=== PATIENT | male | born 1945 | race Caucasian/White ===

== ENCOUNTER 2017-01-23 11:02 | Emergency (ER) | payer OTHER, MEDICARE ==
[~2017-01-23] VITALS: Ht 182.9 cm; Wt 64.0 kg
[~2017-01-23 11:02] MED LIST: ADLT ASA LOW81 MG PO; AMOXICILLIN/CL400 MG PO; AMOXICILLIN500 MG OR; AMOXICILLIN500 MG PO; ANTI-FUNGAL12 TOP; ANUCORT-HC25 MG RE; ASPIRIN EC325 MG PO; ASPIRIN EC81 MG PO; ATORVASTATIN CA40 MG PO; ATROVENT I0.5 MG/VIA IN; AUGMENTIN875TAB PO; AVELOX400 MG PO; CRESTOR10 MG OR; DUONEB IN; ETODOLAC400 MG OR; ETODOLAC400 MG PO; FORADIL IN; GABAPENTIN300 MG PO; IMDUR30 MG PO; ISOSORB MONO60 M1 PO; ISOSORBIDE MONO30 MG PO; KENALOG15 GM/TUBE TOP; LANTUS SOLOSTAR SC; LANTUS100 MG/ML SC; LEVEMIR1000 UNITS SC; LIPITOR40 M1 PO; LIPITOR80 MG PO; LISINOPRIL5 MG PO; LORTAB5 PO; MECLIZINE25 MG PO; METFORMIN1000 MG OR; METFORMIN1000 MG PO; METHYLPRED4 M1 PO; METO25TAB PO; METOPROL TAR25 MG PO; NAPROSYN500 MG PO; NITRO BID SL; NITROGLYCER0.1 MG/HR TD; NITROQUICK0.3 MG SL; NITROSTAT0.4 MG SL; NORCO1 TA1 PO; NOVOLIN R IJ; PAIN RELIEF650 MG PO; PLAVIX75 MG PO; POT CHLORIDE8 MEQ PO; PREDNISONE10 MG PO; PREDNISONE50 MG PO; PROVENTIL0.083 % IN; SEE BELOW; SERTRALINE HCL50 MG PO; SERTRALINE50 MG PO; Symbicort IN; TRAMADOL HCL50 MG PO; TYLENOL ARTH650 M1 OR; ULTRAM50 MG PO; ZESTRIL20 MG PO; ZITHROMAX250 MG PO; ZITHROMAX500 MG OR; ZITHROMAX500 MG PO; [UNRECOGNIZED DRUG - REMARK]; [UNRECOGNIZED DRUG - REMARK] IJ
[2017-01-23] MEDS ORDERED: SERTRALINE HCL50 MG PO (11:17)
[2017-01-23] MEDS ORDERED: ATORVASTATIN CA20 MG PO (11:18)
[2017-01-23] MEDS ORDERED: CLOTRIMAZOLE/BETAME1 EX (11:21)
[2017-01-23 11:34] LABS: HEMATOCRIT 47.5 % (39.0-50.0); HEMOGLOBIN 15.9 g/dl (14.0-18.0); IMMATURE GRANULOCYTES 0.4 % (0.0-1.0); MEAN CELL VOLUME 93.7 fL CALC (80.0-100.0); MEAN CORPUSCULAR HGB 31.4 pG CALC (26.0-32.0); MEAN CORPUSCULAR HGB CONC 33.5 g/L CALC (32.0-36.0); NEUT# 3.45 thou/uL (1.82-7.42); RED BLOOD COUNT 5.07 mill/uL (4.70-6.10); RED CELL DISTRI WIDTH 13.6 % (11.5-15.5)
[2017-01-23 11:46] LABS: ALBUMIN 4.6 g/dL (3.2-5.0); ALKALINE PHOSPHATASE 70 u/l (38-126); ANION GAP 16 (6-22 (CALC)); BILIRUBIN, TOTAL 0.7 mg/dL (0.0-1.4); BUN 17 mg/dL (8-23); BUN/CREATININE RATIO 17 (12-20 (CALC)); CALCIUM 9.7 mg/dL (8.4-10.2); CARBON DIOXIDE 28 mmol/l (22-30); CHLORIDE 104 mmol/l (95-108); GFR > 60 ML/MIN (>=60 (CALC)); GFR FOR AFR.AMER. > 60 ML/MIN (>=60 (CALC)); GLUCOSE 81 mg/dL (82-115); POTASSIUM 4.4 mmol/l (3.5-5.1); SGOT/AST 38 u/l (19-48); SGPT/ALT 44 u/l (11-66); SODIUM 143 mmol/l (137-146); TOTAL PROTEIN 7.6 g/dL (6.3-8.2)
[2017-01-23 11:58] LABS: MYOGLOBIN 53 ng/mL (0 - 121)
[2017-01-23 12:58] LABS: URINE BILIRUBIN - DIPSTICK NEGATIVE (NEGATIVE); URINE BLOOD DIPSTICK NEGATIVE (NEGATIVE); URINE CLARITY CLEAR; URINE COLOR YELLOW; URINE GLUCOSE - DIPSTICK NEGATIVE (NEGATIVE); URINE KETONE NEGATIVE (NEGATIVE); URINE LEUK ESTERASE NEGATIVE (NEGATIVE); URINE NITRITE - DIPSTICK NEGATIVE (Negative); URINE PH 7.5 (4.5-8.0); URINE PROTEIN - DIPSTICK NEGATIVE (NEG-TRACE)
[2017-01-23 15:27] VITALS: BP 163/71
== END 2017-01-23 15:10 | disposition home or self-care (01) | DRG 125 ==
LOC: ED 11:02
PROVIDERS: Emergency Medicine
DX: S01.112A Laceration without foreign body of left eyelid and periocular area, initial encounter (principal); I11.0 Hypertensive heart disease with heart failure; I50.9 Heart failure, unspecified; J44.9 Chronic obstructive pulmonary disease, unspecified; E11.9 Type 2 diabetes mellitus without complications; I25.10 Atherosclerotic heart disease of native coronary artery without angina pectoris; I25.2 Old myocardial infarction; E78.5 Hyperlipidemia, unspecified; W18.30XA Fall on same level, unspecified, initial encounter; Y93.89 Activity, other specified; Y92.122 Bedroom in nursing home as the place of occurrence of the external cause; Z95.5 Presence of coronary angioplasty implant and graft; Z95.1 Presence of aortocoronary bypass graft; Z86.73 Personal history of transient ischemic attack (TIA), and cerebral infarction without residual deficits; Z91.81 History of falling

== ENCOUNTER 2017-05-27 17:23 | Emergency (ER) | payer OTHER, MEDICARE ==
[~2017-05-27] VITALS: Ht 182.9 cm; Wt 80.0 kg
[~2017-05-27 17:23] MED LIST changes: +ATORVASTATIN CA20 MG PO; +CLOTRIMAZOLE/BETAME1 EX
[2017-05-27 17:59] LABS: HEMATOCRIT 43.1 % (39.0-50.0); HEMOGLOBIN 14.7 g/dl (14.0-18.0); IMMATURE GRANULOCYTES 0.3 % (0.0-1.0); MEAN CELL VOLUME 95.8 fL CALC (80.0-100.0); MEAN CORPUSCULAR HGB 32.7 pG CALC (26.0-32.0); MEAN CORPUSCULAR HGB CONC 34.1 g/L CALC (32.0-36.0); NEUT# 3.36 thou/uL (1.82-7.42); RED BLOOD COUNT 4.5 mill/uL (4.70-6.10); RED CELL DISTRI WIDTH 13.1 % (11.5-15.5)
[2017-05-27 18:12] LABS: ALBUMIN 4.3 g/dL (3.2-5.0); ALKALINE PHOSPHATASE 62 u/l (38-126); ANION GAP 13 (6-22 (CALC)); BILIRUBIN, TOTAL 0.5 mg/dL (0.0-1.4); BUN 15 mg/dL (8-23); BUN/CREATININE RATIO 15 (12-20 (CALC)); CALCIUM 9.3 mg/dL (8.4-10.2); CARBON DIOXIDE 27 mmol/l (22-30); CHLORIDE 108 mmol/l (95-108); GFR > 60 ML/MIN (>=60 (CALC)); GFR FOR AFR.AMER. > 60 ML/MIN (>=60 (CALC)); GLUCOSE 97 mg/dL (82-115); SGOT/AST 23 u/l (19-48); SGPT/ALT 37 u/l (11-66); SODIUM 143 mmol/l (137-146); TOTAL PROTEIN 7.1 g/dL (6.3-8.2)
[2017-05-27 18:19] LABS: PROTHROMBIN TIME 10.5 SECONDS (9.0-12.5)
[2017-05-27 18:24] LABS: MYOGLOBIN 60 ng/mL (0 - 121)
[2017-05-27] MEDS ORDERED: ULTRAM50 MG PO (18:34)
[2017-05-27] MEDS ORDERED: NITROSTAT0.4 MG SL (18:37)
[2017-05-27] MEDS ORDERED: PAIN RELIEF500 M3 PO (18:45)
[2017-05-27 21:37] VITALS: BP 139/63
== END 2017-05-27 21:37 | disposition short-term general hospital (02) | DRG 123 ==
LOC: ED 17:23
PROVIDERS: Emergency Medicine
DX: G45.3 Amaurosis fugax (principal); I11.0 Hypertensive heart disease with heart failure; I50.9 Heart failure, unspecified; E11.9 Type 2 diabetes mellitus without complications; I25.10 Atherosclerotic heart disease of native coronary artery without angina pectoris; E78.5 Hyperlipidemia, unspecified; J43.9 Emphysema, unspecified; Z86.73 Personal history of transient ischemic attack (TIA), and cerebral infarction without residual deficits; Z95.1 Presence of aortocoronary bypass graft; Z95.5 Presence of coronary angioplasty implant and graft

== ENCOUNTER 2017-11-29 00:44 | Emergency (ER) | payer MEDICARE ==
[~2017-11-29] VITALS: Ht 182.9 cm; Wt 88.0 kg
[~2017-11-29 00:44] MED LIST changes: +ISOSORB MONO30 MG PO; +KEFLEX500 MG PO; +PAIN RELIEF500 M3 PO; +PRINIVIL5 MG PO; +PROPRANOLOL HCL80 M1 PO
[2017-11-29 01:50] LABS: HEMATOCRIT 42.3 % (39.0-50.0); HEMOGLOBIN 14.5 g/dl (14.0-18.0); IMMATURE GRANULOCYTES 0.2 % (0.0-1.0); MEAN CELL VOLUME 94.4 fL CALC (80.0-100.0); MEAN CORPUSCULAR HGB 32.4 pG CALC (26.0-32.0); MEAN CORPUSCULAR HGB CONC 34.3 g/L CALC (32.0-36.0); NEUT# 7.46 thou/uL (1.82-7.42); RED BLOOD COUNT 4.48 mill/uL (4.70-6.10); RED CELL DISTRI WIDTH 13.2 % (11.5-15.5)
[2017-11-29 02:06] LABS: ALKALINE PHOSPHATASE 75 u/l (38-126); ANION GAP 12 (6-22 (CALC)); BILIRUBIN, TOTAL 0.4 mg/dL (0.0-1.4); BUN 20 mg/dL (8-23); BUN/CREATININE RATIO 17 (12-20 (CALC)); CARBON DIOXIDE 28 mmol/l (22-30); CHLORIDE 104 mmol/l (95-108); CREATININE 1.2 mg/dL (0.7-1.3); GFR 59 ML/MIN (>=60 (CALC)); GFR FOR AFR.AMER. > 60 ML/MIN (>=60 (CALC)); POTASSIUM 4.6 mmol/l (3.5-5.1); SGOT/AST 19 u/l (19-48); SGPT/ALT 29 u/l (11-66); SODIUM 139 mmol/l (137-146); TOTAL PROTEIN 7.2 g/dL (6.3-8.2)
[2017-11-29 03:07] LABS: MYOGLOBIN 59 ng/mL (0 - 121)
[2017-11-29] MEDS ORDERED: NAPROSYN500 MG PO (03:52)
[2017-11-29 04:05] VITALS: BP 136/61
== END 2017-11-29 04:05 | disposition home or self-care (01) ==
LOC: ED 00:44
PROVIDERS: Emergency Medicine
DX: S09.90XA Unspecified injury of head, initial encounter (principal); M47.816 Spondylosis without myelopathy or radiculopathy, lumbar region; R00.1 Bradycardia, unspecified; R42 Dizziness and giddiness; M79.1 Myalgia; I25.810 Atherosclerosis of coronary artery bypass graft(s) without angina pectoris; I10 Essential (primary) hypertension; Z95.1 Presence of aortocoronary bypass graft; W06.XXXA Fall from bed, initial encounter; Y93.E8 Activity, other personal hygiene; Y92.122 Bedroom in nursing home as the place of occurrence of the external cause

== ENCOUNTER 2018-07-12 08:48 | Observation (INO) | payer MEDICARE ==
[2018-07-12] VITALS (7 sets, daily range): BP systolic 92–161; BP diastolic 42–74
[~2018-07-12] VITALS: Ht 182.9 cm; Wt 89.8 kg
[2018-07-12] MEDS ORDERED: METOPROL TAR25 MG PO (09:13)
[2018-07-12 09:36] LABS: HEMATOCRIT 45.2 % (39.0-50.0); HEMOGLOBIN 15.5 g/dl (14.0-18.0); IMMATURE GRANULOCYTES 0.3 % (0.0-5.0); MEAN CELL VOLUME 95.2 fL CALC (80.0-100.0); MEAN CORPUSCULAR HGB 32.6 pG CALC (26.0-32.0); MEAN CORPUSCULAR HGB CONC 34.3 g/L CALC (32.0-36.0); NEUT# 4.27 thou/uL (1.82-7.42); RED BLOOD COUNT 4.75 mill/uL (4.70-6.10); RED CELL DISTRI WIDTH 12.7 % (11.5-15.5)
[2018-07-12 09:40] LABS: ALBUMIN 4.4 g/dL (3.2-5.0); ALKALINE PHOSPHATASE 70 u/l (38-126); ANION GAP 15 (6-22 (CALC)); BUN 15 mg/dL (8-23); BUN/CREATININE RATIO 14 (12-20 (CALC)); CARBON DIOXIDE 27 mmol/l (22-30); CHLORIDE 102 mmol/l (95-108); CREATININE 1.1 mg/dL (0.7-1.3); GFR > 60 ML/MIN (>=60 (CALC)); GFR FOR AFR.AMER. > 60 ML/MIN (>=60 (CALC)); LIPASE 95 u/l (23-300); POTASSIUM 4.3 mmol/l (3.5-5.1); SODIUM 140 mmol/l (137-146); TOTAL PROTEIN 7.7 g/dL (6.3-8.2)
[2018-07-12 09:42] LABS: SGOT/AST 40 u/l (19-48)
[2018-07-12 09:52] LABS: D-DIMER 0.3 mg/L (0.19-0.60); PROTHROMBIN TIME 10.5 SECONDS (9.0-12.5)
[2018-07-13 00:05] VITALS: BP 119/57
[2018-07-13 04:00] VITALS: BP 100/47
[2018-07-13 05:55] LABS: HEMATOCRIT 45.1 % (39.0-50.0); HEMOGLOBIN 15.5 g/dl (14.0-18.0); IMMATURE GRANULOCYTES 0.2 % (0.0-5.0); MEAN CELL VOLUME 94.4 fL CALC (80.0-100.0); MEAN CORPUSCULAR HGB 32.4 pG CALC (26.0-32.0); MEAN CORPUSCULAR HGB CONC 34.4 g/L CALC (32.0-36.0); NEUT# 3.81 thou/uL (1.82-7.42); RED BLOOD COUNT 4.78 mill/uL (4.70-6.10); RED CELL DISTRI WIDTH 12.7 % (11.5-15.5)
[2018-07-13 06:13] LABS: ALBUMIN 3.7 g/dL (3.2-5.0); ALKALINE PHOSPHATASE 66 u/l (38-126); ANION GAP 13 (6-22 (CALC)); BILIRUBIN, TOTAL 0.6 mg/dL (0.0-1.4); BUN 17 mg/dL (8-23); BUN/CREATININE RATIO 15 (12-20 (CALC)); CARBON DIOXIDE 27 mmol/l (22-30); CHLORIDE 106 mmol/l (95-108); CREATININE 1.1 mg/dL (0.7-1.3); GFR > 60 ML/MIN (>=60 (CALC)); GFR FOR AFR.AMER. > 60 ML/MIN (>=60 (CALC)); MAGNESIUM 2.3 mg/dL (1.6-2.3); POTASSIUM 4.4 mmol/l (3.5-5.1); SGOT/AST 26 u/l (19-48); SODIUM 141 mmol/l (137-146); TOTAL PROTEIN 6.5 g/dL (6.3-8.2)
[2018-07-13 08:00] VITALS: BP 127/59
[2018-07-13 10:00] VITALS: BP 140/78
== END 2018-07-13 11:50 ==
LOC: ED 08:48 → ED-I 10:01 → ED 10:29 → ICU 10:30
PROVIDERS: Emergency Medicine; ADMIT Internal Medicine Nephrology; ATTEND Internal Medicine Nephrology
DX: R00.1 Bradycardia, unspecified (principal); T44.7X5A Adverse effect of beta-adrenoreceptor antagonists, initial encounter; R07.9 Chest pain, unspecified; I11.9 Hypertensive heart disease without heart failure; E11.9 Type 2 diabetes mellitus without complications; I25.10 Atherosclerotic heart disease of native coronary artery without angina pectoris; J44.9 Chronic obstructive pulmonary disease, unspecified; E78.5 Hyperlipidemia, unspecified; I69.928 Other speech and language deficits following unspecified cerebrovascular disease; I69.922 Dysarthria following unspecified cerebrovascular disease; I69.951 Hemiplegia and hemiparesis following unspecified cerebrovascular disease affecting right dominant side; Z79.84 Long term (current) use of oral hypoglycemic drugs; Z95.5 Presence of coronary angioplasty implant and graft; Z95.1 Presence of aortocoronary bypass graft; Z87.891 Personal history of nicotine dependence; Z85.46 Personal history of malignant neoplasm of prostate
CPT/HCPCS: J1610

== ENCOUNTER 2018-08-06 17:27 | Emergency (ER) | payer OTHER, MEDICARE ==
[~2018-08-06] VITALS: Ht 182.9 cm; Wt 90.9 kg
[2018-08-06 18:01] LABS: HEMATOCRIT 40.2 % (39.0-50.0); IMMATURE GRANULOCYTES 0.5 % (0.0-5.0); MEAN CORPUSCULAR HGB 31.9 pG CALC (26.0-32.0); MEAN CORPUSCULAR HGB CONC 33.6 g/L CALC (32.0-36.0); NEUT# 4.03 thou/uL (1.82-7.42); RED BLOOD COUNT 4.23 mill/uL (4.70-6.10)
[2018-08-06 18:05] LABS: HEMOGLOBIN 13.5 g/dl (14.0-18.0)
[2018-08-06 18:21] LABS: ALBUMIN 3.8 g/dL (3.2-5.0); ALKALINE PHOSPHATASE 65 u/l (38-126); ANION GAP 11 (6-22 (CALC)); BILIRUBIN, TOTAL 0.4 mg/dL (0.0-1.4); BUN 9 mg/dL (8-23); BUN/CREATININE RATIO 9 (12-20 (CALC)); CARBON DIOXIDE 29 mmol/l (22-30); CHLORIDE 105 mmol/l (95-108); CREATININE 1.1 mg/dL (0.7-1.3); GFR > 60 ML/MIN (>=60 (CALC)); GFR FOR AFR.AMER. > 60 ML/MIN (>=60 (CALC)); POTASSIUM 4.3 mmol/l (3.5-5.1); SGOT/AST 23 u/l (19-48); SODIUM 141 mmol/l (137-146); TOTAL PROTEIN 6.4 g/dL (6.3-8.2)
[2018-08-06 18:31] LABS: MYOGLOBIN 95 ng/mL (0 - 121)
[2018-08-06] MEDS ORDERED: TORADOL PO (21:07)
[2018-08-06 21:29] VITALS: BP 152/65
== END 2018-08-06 21:42 | disposition home or self-care (01) | DRG 206 ==
LOC: ED 17:27
PROVIDERS: Emergency Medicine
DX: M94.0 Chondrocostal junction syndrome [Tietze] (principal); I25.10 Atherosclerotic heart disease of native coronary artery without angina pectoris; E78.5 Hyperlipidemia, unspecified; E11.9 Type 2 diabetes mellitus without complications; J44.9 Chronic obstructive pulmonary disease, unspecified; Z95.1 Presence of aortocoronary bypass graft; Z95.5 Presence of coronary angioplasty implant and graft; Z86.73 Personal history of transient ischemic attack (TIA), and cerebral infarction without residual deficits

== ENCOUNTER 2018-09-07 16:13 | Emergency (ER) | payer MEDICARE ==
[~2018-09-07] VITALS: Ht 182.9 cm; Wt 80.0 kg
[~2018-09-07 16:13] MED LIST changes: +TORADOL PO
[2018-09-07] MEDS ORDERED: ISOSORBIDE MONO60 MG PO (17:59)
[2018-09-07] MEDS ORDERED: TYLENOL 500MG TAB PO (18:01)
[2018-09-07] MEDS ORDERED: TORADOL PO (19:07)
[2018-09-07] MEDS ORDERED: TRAMADOL HCL50 MG PO (19:07)
[2018-09-07 19:17] VITALS: BP 131/74
== END 2018-09-07 19:17 ==
LOC: ED 16:13
DX: S39.012A Strain of muscle, fascia and tendon of lower back, initial encounter (principal); S30.0XXA Contusion of lower back and pelvis, initial encounter; E11.9 Type 2 diabetes mellitus without complications; I25.10 Atherosclerotic heart disease of native coronary artery without angina pectoris; E78.5 Hyperlipidemia, unspecified; J43.9 Emphysema, unspecified; W07.XXXA Fall from chair, initial encounter; Y92.099 Unspecified place in other non-institutional residence as the place of occurrence of the external cause; Z95.1 Presence of aortocoronary bypass graft; Z95.5 Presence of coronary angioplasty implant and graft; Z86.73 Personal history of transient ischemic attack (TIA), and cerebral infarction without residual deficits

== ENCOUNTER 2018-09-18 10:41 | Emergency (ER) | payer MEDICARE ==
[~2018-09-18] VITALS: Ht 182.9 cm; Wt 100.0 kg
[~2018-09-18 10:41] MED LIST changes: +ISOSORBIDE MONO60 MG PO; +TYLENOL 500MG TAB PO
[2018-09-18 11:32] LABS: HEMATOCRIT 41.9 % (39.0-50.0); HEMOGLOBIN 14.1 g/dl (14.0-18.0); IMMATURE GRANULOCYTES 0.4 % (0.0-5.0); MEAN CELL VOLUME 95.7 fL CALC (80.0-100.0); MEAN CORPUSCULAR HGB 32.2 pG CALC (26.0-32.0); MEAN CORPUSCULAR HGB CONC 33.7 g/L CALC (32.0-36.0); NEUT# 3.4 thou/uL (1.82-7.42); RED BLOOD COUNT 4.38 mill/uL (4.70-6.10); RED CELL DISTRI WIDTH 12.8 % (11.5-15.5)
[2018-09-18 11:47] LABS: ANION GAP 14 (6-22 (CALC)); BUN 14 mg/dL (8-23); BUN/CREATININE RATIO 13 (12-20 (CALC)); CARBON DIOXIDE 27 mmol/l (22-30); CHLORIDE 104 mmol/l (95-108); CREATININE 1.1 mg/dL (0.7-1.3); GFR > 60 ML/MIN (>=60 (CALC)); GFR FOR AFR.AMER. > 60 ML/MIN (>=60 (CALC)); POTASSIUM 4.2 mmol/l (3.5-5.1); SODIUM 140 mmol/l (137-146)
[2018-09-18 16:45] VITALS: BP 113/59
== END 2018-09-18 16:45 ==
LOC: ED 10:41
PROVIDERS: Family Medicine
DX: M54.5 Low back pain (principal); M54.6 Pain in thoracic spine; E11.9 Type 2 diabetes mellitus without complications; I25.10 Atherosclerotic heart disease of native coronary artery without angina pectoris; E78.5 Hyperlipidemia, unspecified; J44.9 Chronic obstructive pulmonary disease, unspecified; Z95.1 Presence of aortocoronary bypass graft; Z95.5 Presence of coronary angioplasty implant and graft; Z91.81 History of falling

== ENCOUNTER 2018-12-31 08:58 | Observation (INO) | payer OTHER, MEDICARE ==
[~2018-12-31] VITALS: Ht 182.9 cm; Wt 85.7 kg
[2018-12-31] MEDS ORDERED: LORTAB 5/3255 MG PO (09:14)
[2018-12-31] MEDS ORDERED: FLONASE AL50 MCG/ACT NAB (09:14)
[2018-12-31] MEDS ORDERED: RANITIDINE150 M1 PO (09:14)
[2018-12-31 09:15] LABS: HEMATOCRIT 42.5 % (39.0-50.0); HEMOGLOBIN 14.3 g/dl (14.0-18.0); IMMATURE GRANULOCYTES 0.3 % (0.0-5.0); MEAN CELL VOLUME 94.2 fL CALC (80.0-100.0); MEAN CORPUSCULAR HGB 31.7 pG CALC (26.0-32.0); MEAN CORPUSCULAR HGB CONC 33.6 g/L CALC (32.0-36.0); NEUT# 3.62 thou/uL (1.82-7.42); RED BLOOD COUNT 4.51 mill/uL (4.70-6.10); RED CELL DISTRI WIDTH 13.2 % (11.5-15.5)
[2018-12-31 09:28] LABS: ANION GAP 14 (6-22 (CALC)); BUN 16 mg/dL (8-23); BUN/CREATININE RATIO 14 (12-20 (CALC)); CARBON DIOXIDE 26 mmol/l (22-30); CHLORIDE 105 mmol/l (95-108); CREATININE 1.1 mg/dL (0.7-1.3); GFR > 60 ML/MIN (>=60 (CALC)); GFR FOR AFR.AMER. > 60 ML/MIN (>=60 (CALC)); POTASSIUM 4.6 mmol/l (3.5-5.1); SODIUM 140 mmol/l (137-146)
[2018-12-31 19:10] VITALS: BP 128/61
[2019-01-01] VITALS: BP 131/60
[2019-01-01 04:11] VITALS: BP 107/54
[2019-01-01 08:02] VITALS: BP 113/51
[2019-01-01 10:15] VITALS: BP 108/60
== END 2019-01-01 12:48 | DRG 313 ==
LOC: ED 08:58 → ED-I 09:32 → ED 09:32 → ED-I 09:33 → ED 13:17 → MS2 13:18 → ED-I 13:18 → MS2 15:22
PROVIDERS: Family Medicine; ADMIT Internal Medicine; ATTEND Internal Medicine
DX: R07.9 Chest pain, unspecified (principal); I25.10 Atherosclerotic heart disease of native coronary artery without angina pectoris; E11.9 Type 2 diabetes mellitus without complications; I10 Essential (primary) hypertension; J43.9 Emphysema, unspecified; E78.5 Hyperlipidemia, unspecified; Z95.1 Presence of aortocoronary bypass graft; Z95.5 Presence of coronary angioplasty implant and graft; Z86.73 Personal history of transient ischemic attack (TIA), and cerebral infarction without residual deficits; Z85.46 Personal history of malignant neoplasm of prostate; Z87.891 Personal history of nicotine dependence; Z79.02 Long term (current) use of antithrombotics/antiplatelets

== ENCOUNTER 2019-05-27 00:39 | Emergency (ER) | payer OTHER, MEDICARE ==
[~2019-05-27] VITALS: Ht 182.9 cm; Wt 81.0 kg
[~2019-05-27 00:39] MED LIST changes: +FLONASE AL50 MCG/ACT NAB; +LORTAB 5/3255 MG PO; +RANITIDINE150 M1 PO
[2019-05-27 01:41] LABS: HEMATOCRIT 38.7 % (39.0-50.0); HEMOGLOBIN 13.1 g/dl (14.0-18.0); IMMATURE GRANULOCYTES 0.2 % (0.0-5.0); MEAN CELL VOLUME 94.6 fL CALC (80.0-100.0); MEAN CORPUSCULAR HGB CONC 33.9 g/L CALC (32.0-36.0); NEUT# 3.74 thou/uL (1.82-7.42); RED BLOOD COUNT 4.09 mill/uL (4.70-6.10)
[2019-05-27 01:51] LABS: ALBUMIN 3.9 g/dL (3.2-5.0); ALKALINE PHOSPHATASE 68 u/l (38-126); ANION GAP 11 (6-22 (CALC)); BILIRUBIN, TOTAL 0.3 mg/dL (0.0-1.4); BUN 15 mg/dL (8-23); BUN/CREATININE RATIO 14 (12-20 (CALC)); CARBON DIOXIDE 29 mmol/l (22-30); CHLORIDE 103 mmol/l (95-108); CREATININE 1.1 mg/dL (0.7-1.3); GFR > 60 ML/MIN (>=60 (CALC)); GFR FOR AFR.AMER. > 60 ML/MIN (>=60 (CALC)); POTASSIUM 3.9 mmol/l (3.5-5.1); SGOT/AST 24 u/l (19-48); SODIUM 139 mmol/l (137-146); TOTAL PROTEIN 6.8 g/dL (6.3-8.2)
[2019-05-27 01:59] LABS: MYOGLOBIN 74 ng/mL (0 - 121)
[2019-05-27] MEDS ORDERED: TORADOL PO (02:11)
[2019-05-27 07:20] VITALS: BP 100/51
== END 2019-05-27 07:20 | DRG 313 ==
LOC: ED 00:39
PROVIDERS: Family Medicine
DX: R07.89 Other chest pain (principal); E11.9 Type 2 diabetes mellitus without complications; I25.2 Old myocardial infarction; Z95.5 Presence of coronary angioplasty implant and graft; Z86.73 Personal history of transient ischemic attack (TIA), and cerebral infarction without residual deficits

== ENCOUNTER 2019-11-03 20:12 | Observation (INO) | payer OTHER, MEDICARE ==
[~2019-11-03] VITALS: Ht 175.3 cm; Wt 85.5 kg
--- NOTE | 2019-11-03 20:15 | NUR ---
PT CHANGED TO GOWN. MONITORS APPLIED. PT ASSESSED. REPORTS SUDDEN ONSET CHEST PAIN 30 MIN PRIOR TO ARRIVAL WORSE WITH COUGHING. PAIN 8/10.
--- NOTE | 2019-11-03 20:20 | NUR ---
EKG DONE. LABS DRAW INCLUDING BLOOD CULTURE AND LACTIC ACID. COVID 19 SWAB COLLECTED.
[2019-11-03] MEDS ORDERED: ACETAMINOPHEN500 M1 PO (20:34)
[2019-11-03] MEDS ORDERED: PEPCID20 MG PO (20:35)
--- NOTE | 2019-11-03 20:49 | NUR ---
SECOND BLOOD CULTURES DRAWN. STREP AND FLU SWABS COLLECTED.
[2019-11-03 21:01] LABS: HEMATOCRIT 42.4 % (39.0-50.0); HEMOGLOBIN 14.3 g/dl (14.0-18.0); IMMATURE GRANULOCYTES 0.3 % (0.0-5.0); MEAN CELL VOLUME 93.6 fL CALC (80.0-100.0); MEAN CORPUSCULAR HGB 31.6 pG CALC (26.0-32.0); MEAN CORPUSCULAR HGB CONC 33.7 g/dL CAL (32.0-36.0); NEUT# 9.58 thou/uL (1.82-7.42); RED BLOOD COUNT 4.53 mill/uL (4.70-6.10); RED CELL DISTRI WIDTH 12.8 % (11.5-15.5)
[2019-11-03 21:14] LABS: ALBUMIN 4.2 g/dL (3.2-5.0); ALKALINE PHOSPHATASE 74 u/l (38-126); AMYLASE 33 u/l (30-110); ANION GAP 12 (6-22 (CALC)); BILIRUBIN, TOTAL 1.1 mg/dL (0.0-1.4); BUN 13 mg/dL (8-23); BUN/CREATININE RATIO 13 (12-20 (CALC)); CARBON DIOXIDE 27 mmol/l (22-30); CHLORIDE 104 mmol/l (95-108); CREATININE 1.1 mg/dL (0.7-1.3); GFR > 60 ML/MIN (>=60 (CALC)); GFR FOR AFR.AMER. > 60 ML/MIN (>=60 (CALC)); LIPASE 74 u/l (23-300); POTASSIUM 4.2 mmol/l (3.5-5.1); SGOT/AST 24 u/l (19-48); SODIUM 139 mmol/l (137-146)
[2019-11-03 21:23] LABS: ACT PARTIAL THROMBO TIME 27.3 SECONDS (20.0-32.5); PROTHROMBIN TIME 10.7 SECONDS (9.0-12.5)
--- NOTE | 2019-11-03 21:27 | NUR ---
PT RESTING COMFORTABLY ON STRETCHER. PT IN AIRBORN ISOLATION SINCE ARRIVAL TO ED
--- NOTE | 2019-11-03 21:56 | NUR ---
REPORT GIVEN TO VIOLA YEUNG
--- NOTE | 2019-11-03 22:15 | NUR ---
RESP EASY REG. NAD. VSS. AWAITING ADMISSION
--- NOTE | 2019-11-03 22:26 | NUR ---
ATTEMPTED TO CALL REPORT. WILL CALL BACK.
--- NOTE | 2019-11-03 22:38 | NUR ---
REPORT TO POLO, [id number]
--- NOTE | 2019-11-03 22:45 | NUR ---
TO FLOOR VIA STRETCHER WITH POCKET MONITOR AND MASK. PT AMBULATORY TO BED WITH ASSIST UPON ARRIVAL TO FLOOR.
[2019-11-03 22:50] VITALS: BP 132/79
--- NOTE | 2019-11-03 22:51 | NUR ---
PT ARRIVED TO FLOOR VIA STRETCHER ACCOMPAINED BY ER STAFF. PT ALERT AND ORIENTED. NO APPARENT DISTRESS NOTED. PT STATES CP BETTER BUT STILL PRESENT. PT AMBULATED WITH ASSIST TO BED. CATTLE TRADER IN PLACE. IV SITE APPEAR HEALTHY. PT REQUEST EMS SITE TO BE REMOVED DUE TO UNCOMFORTABLE LOCATION, IV SITE REMOVED AT THIS TIME WITH CATH INTACT. IV SITE IN LAC REMAINS SL. DISCUSSED POC AND ORIENTED TO ROOM AND CALL LIGHT SYSTEM. PT VERBALIZED UNDERSTANDING. CALL LIGHT WITHIN REACH. WILL CONTINUE TO MONITOR.
--- NOTE | 2019-11-04 01:55 | NUR ---
PT RESTING IN BED WITH EYES CLOSED. NO APPARENT DISTRESS NOTED. RESPIRATIONS EVEN AND UNLABORED. CALL LIGHT WITHIN REACH. WILL CONTINUE TO MONITOR.
[2019-11-04 04:15] VITALS: BP 115/60
[2019-11-04 06:15] LABS: HEMATOCRIT 40.8 % (39.0-50.0); HEMOGLOBIN 13.7 g/dl (14.0-18.0); IMMATURE GRANULOCYTES 0.4 % (0.0-5.0); MEAN CELL VOLUME 93.8 fL CALC (80.0-100.0); MEAN CORPUSCULAR HGB 31.5 pG CALC (26.0-32.0); MEAN CORPUSCULAR HGB CONC 33.6 g/dL CAL (32.0-36.0); NEUT# 5.24 thou/uL (1.82-7.42); RED BLOOD COUNT 4.35 mill/uL (4.70-6.10); RED CELL DISTRI WIDTH 12.5 % (11.5-15.5)
[2019-11-04 06:29] LABS: URINE BILIRUBIN - DIPSTICK NEGATIVE (NEGATIVE); URINE BLOOD DIPSTICK NEGATIVE (NEGATIVE); URINE COLOR YELLOW; URINE GLUCOSE - DIPSTICK NEGATIVE (NEGATIVE); URINE KETONE 15 mg/dL (NEGATIVE); URINE LEUK ESTERASE NEGATIVE (NEGATIVE); URINE NITRITE - DIPSTICK NEGATIVE (Negative); URINE PH 6.5 (4.5-8.0); URINE PROTEIN - DIPSTICK NEGATIVE (NEG-TRACE); URINE SPECIFIC GRAVITY 1.025; URINE UROBILINOGEN - DIPSTICK 0.2 E.U./dL (0.2)
[2019-11-04 06:35] LABS: ANION GAP 9 (6-22 (CALC)); BUN 14 mg/dL (8-23); BUN/CREATININE RATIO 14 (12-20 (CALC)); CARBON DIOXIDE 27 mmol/l (22-30); CHLORIDE 107 mmol/l (95-108); GFR > 60 ML/MIN (>=60 (CALC)); GFR FOR AFR.AMER. > 60 ML/MIN (>=60 (CALC)); POTASSIUM 3.9 mmol/l (3.5-5.1); SODIUM 139 mmol/l (137-146)
[2019-11-04 08:00] VITALS: BP 99/49
--- NOTE | 2019-11-04 08:00 | NUR ---
REPORT RECEIVED FROM KACIE CUELLAR. PT RESTING IN BED ON RIGHT SIDE WITH EYES CLOSED; AWAKENS TO VERBAL STIMULI. DENIES PAIN. RESPIRATIONS EVEN AND UNALBORED ON ROOM. VERBAL STUTTER WITH SOME DELAYED SPEECH THAT IS NORMAL FOR PT; ALERT AND ORIENTED. VSS. PLAN OF CARE REVIEWED. PT ENCOURAGED TO VERBALIZE CONCERNS. STATES UNDERSTANDING. SAFETY MEASURES IN PLACE. CALL LIGHT WITHIN REACH.
[2019-11-04 11:00] VITALS: BP 108/56
--- NOTE | 2019-11-04 11:15 | NUR ---
PT REQUESTING TO CALL THE [facility]; ASSITED WITH PHONE CALL. ACCU CHECK 100. IV SITE APPEARS HEALTHY AND FLUSHES. TELE ON. PT REMAINS ON AIRBORNE ISOLATION PRECAUTIONS PENDING COVID TEST RESUTLS.
--- NOTE | 2019-11-04 12:10 | NUR ---
TROPONIN COLLECTED AND SENT TO LAB. PT VERY TALKATIVE.
--- NOTE | 2019-11-04 14:17 | NUR ---
DR. FISCHER AT BEDSIDE.
--- NOTE | 2019-11-04 14:45 | NUR ---
POA UPDATED VIA TELEPHONE.
[2019-11-04 15:00] VITALS: BP 136/65
--- NOTE | 2019-11-04 17:11 | NUR ---
PT RESTING IN BED WATCHING TV; NO REQUESTS OR CONCERNS AT THIS TIME. HELPED SEVERAL TIMES TO MAKE PHONE CALLS TO THE [facility]; PT WISHES TO SPEAK WITH GIRLFRIEND. VOIDING IN URINAL. SAFETY MEASURES IN PLACE. CALL LIGHT WITHIN REACH.
--- NOTE | 2019-11-04 19:08 | NUR ---
REPORT FROM OWEN YEUNG. PT SITTING UP IN BED. ALERT AND ORIENTED. NO APPARENT DISTRESS NOTED. PT DENIES ANY PAIN OR DISCOMFORT. RESPIRATIONS EVEN AND UNLABORED. IV SITE APPEARS HEALTHY. OCC THERAPY ASST IN PLACE. PT REMAINS ON ISOLATION PRECAUTIONS FOR R/O COVID-19. DISCUSSED POC. PT VERBALIZED UNDERSTANDING. CALL LIGHT WITHIN REACH. WILL CONTINUE TO MONITOR.
[2019-11-04 19:53] VITALS: BP 138/61
--- NOTE | 2019-11-04 23:40 | NUR ---
PT RESTING IN BED WITH EYES CLOSED. NO APPARENT DISTRESS NOTED. PT WAKES EASILY. DENIES ANY PAIN OR DISCOMFORT. PT TALKATIVE. NO CURRENT WANTS OR NEEDS. CALL LIGHT WITHIN REACH. WILL CONTINUE TO MONITOR.
[2019-11-04 23:52] VITALS: BP 117/62
--- NOTE | 2019-11-05 03:35 | NUR ---
PT RESTING IN BED WITH EYES CLOSED. NO APPARENT DISTRESS NOTED. CALL LIGHT WITHIN REACH. WILL CONTINUE TO MONITOR.
[2019-11-05 04:50] VITALS: BP 112/56
[2019-11-05 07:54] VITALS: BP 113/58
--- NOTE | 2019-11-05 09:00 | NUR ---
PT IS AWAKE, ALERT, ORIENTED X 3. LUNGS CLEAR, RA. NO SHORTNESS OF BREATH OR CHEST PAIN REPORTED.
[2019-11-05 11:04] VITALS: BP 113/54
--- NOTE | 2019-11-05 13:22 | NUR ---
PT REMAINS AT REST IN THE BED, NO DISTRESS, NO COMPLAINTS.
[2019-11-05 15:10] VITALS: BP 115/58
--- NOTE | 2019-11-05 16:52 | NUR ---
PT WAS ABLE TO BE DISCHARGE TO [facility] TODAY PER MEDICAL OPINION, BUT [facility] DID NOT WANT TO RETURN HIM THERE WITHOUT KNOWING THE RESULT OF THE COVID-19 TEST. SUCH, PT REMAINS AT REST IN THE BED, NO DISTRESS, NO COMPLAINTS.
--- NOTE | 2019-11-05 18:15 | NUR ---
LAB CALLS TO SAY THAT COVID-19 RESULT IS NEGATIVE.
--- NOTE | 2019-11-05 19:00 | NUR ---
REPORT FROM MOISÉS YEUNG. PT SITTING UP IN BED. ALERT AND ORIENTED. NO APPARENT DISTRESS NOTED. PT DENIES ANY PAIN OR DISCOMFORT. RESPIRATIONS EVEN AND UNLABORED. IV SITE APPEARS HEALTHY. CONCHE OPERATOR IN PLACE. COVID RESULTS NEGATIVE AT THIS TIME, INFORMED PT OF ROOM CHANGE. DISCUSSED POC. PT VERBALIZED UNDERSTANDING. CALL LIGHT WITHIN REACH. WILL CONTINUE TO MONITOR.
[2019-11-05 19:15] VITALS: BP 119/69
--- NOTE | 2019-11-05 19:22 | NUR ---
PT AND ALL INVENTORIED BELONGINGS MOVED FROM ISOLATION ROOM TO ROOM 273.
--- NOTE | 2019-11-05 23:24 | NUR ---
PT RESTING IN BED WITH EYES CLOSED. NO APPARENT DISTRESS NOTED. CALL LIGHT WITHIN REACH. WILL CONTINUE TO MONITOR.
[2019-11-05 23:54] VITALS: BP 101/62
--- NOTE | 2019-11-06 03:08 | NUR ---
PT RESTING IN BED WITH EYES CLOSED. NO APPARENT DISTRESS NOTED. RESPIRATIONS EVEN AND UNLABORED. CALL LIGHT WITHIN REACH. WILL CONTINUE TO MONITOR.
[2019-11-06 05:09] VITALS: BP 110/68
--- NOTE | 2019-11-06 07:15 | NUR ---
CHANGE OF SHIFT REPORT REEIVED FROM ANJANA CUELLAR. PT STABLE RESTING COMFORTABLY IN BED WITH EYES CLOSED. RESPIRATION EVEN AND UNLABORED. CALL LIGHT WITHIN EASY REACH
[2019-11-06 08:03] VITALS: BP 146/70
--- NOTE | 2019-11-06 10:37 | NUR ---
PER JESSICA FROM LAB, ONE BOTTLE OF 2 SETS OF BLOOD CULTURES IS GROWING GRAM POSITIVE COCCI. ALIA LEWIS
[2019-11-06 10:45] VITALS: BP 110/61
--- NOTE | 2019-11-06 11:10 | NUR ---
Discharge instructions given. Patient verbalizes understanding of same. Discharged in stable condition via Wheelchair to ACLF with FACILITY staff. All belongings sent with pt.
[2020-05-11] MEDS ORDERED: LOPRESSOR25 MG PO (23:45)
[2020-05-11] MEDS ORDERED: TRAZODONE50 MG PO (23:46)
[2020-05-11] MEDS ORDERED: HYDROXYZ HCL25 MG PO (23:47)
== END 2019-11-06 11:14 | DRG 313 ==
LOC: ED 20:12 → ED-I 21:34 → ED 21:53 → MS2 21:54 → ED-I 21:54 → MS2 22:00
PROVIDERS: ADMIT Internal Medicine; ATTEND Internal Medicine
DX: R07.9 Chest pain, unspecified (principal); R05 Cough; E11.9 Type 2 diabetes mellitus without complications; I25.10 Atherosclerotic heart disease of native coronary artery without angina pectoris; J44.9 Chronic obstructive pulmonary disease, unspecified; I48.91 Unspecified atrial fibrillation; I25.2 Old myocardial infarction; I11.0 Hypertensive heart disease with heart failure; I50.9 Heart failure, unspecified; E78.5 Hyperlipidemia, unspecified; Z95.5 Presence of coronary angioplasty implant and graft; Z87.891 Personal history of nicotine dependence; Z95.1 Presence of aortocoronary bypass graft; Z79.02 Long term (current) use of antithrombotics/antiplatelets; Z86.73 Personal history of transient ischemic attack (TIA), and cerebral infarction without residual deficits; Z20.828 Contact with and (suspected) exposure to other viral communicable diseases
CPT/HCPCS: G0378; J1650

== ENCOUNTER 2020-03-20 14:24 | Observation (INO) | payer OTHER, MEDICARE ==
[~2020-03-20] VITALS: Ht 175.3 cm; Wt 85.2 kg
[~2020-03-20 14:24] MED LIST changes: +ACETAMINOPHEN500 M1 PO; +PEPCID20 MG PO
[2020-03-20 14:39] LABS: HEMATOCRIT 40.3 % (39.0-50.0); HEMOGLOBIN 13.1 g/dl (14.0-18.0); IMMATURE GRANULOCYTES 0.3 % (0.0-5.0); MEAN CELL VOLUME 94.8 fL CALC (80.0-100.0); MEAN CORPUSCULAR HGB 30.8 pG CALC (26.0-32.0); MEAN CORPUSCULAR HGB CONC 32.5 g/dL CAL (32.0-36.0); NEUT# 3.67 thou/uL (1.82-7.42); RED BLOOD COUNT 4.25 mill/uL (4.70-6.10); RED CELL DISTRI WIDTH 12.9 % (11.5-15.5)
[2020-03-20 14:51] LABS: ANION GAP 9 (6-22 (CALC)); BUN 18 mg/dL (8-23); BUN/CREATININE RATIO 16 (12-20 (CALC)); CARBON DIOXIDE 30 mmol/l (22-30); CHLORIDE 101 mmol/l (95-108); CREATININE 1.1 mg/dL (0.7-1.3); GFR > 60 ML/MIN (>=60 (CALC)); GFR FOR AFR.AMER. > 60 ML/MIN (>=60 (CALC)); POTASSIUM 4.2 mmol/l (3.5-5.1); SODIUM 136 mmol/l (137-146)
[2020-03-20 18:01] VITALS: BP 111/56
[2020-03-20 19:29] VITALS: BP 107/46
[2020-03-21 00:33] VITALS: BP 102/59
[2020-03-21 03:55] VITALS: BP 101/61
[2020-03-21 06:01] LABS: CHOLESTEROL HDL RATIO 4.4 (<4.4 (CALC)); MAGNESIUM 2.3 mg/dL (1.6-2.3)
[2020-03-21 08:16] VITALS: BP 107/59
[2020-03-21 10:30] VITALS: BP 116/65
[2020-05-11] MEDS ORDERED: LOPRESSOR25 MG PO (23:45)
[2020-05-11] MEDS ORDERED: TRAZODONE50 MG PO (23:46)
[2020-05-11] MEDS ORDERED: HYDROXYZ HCL25 MG PO (23:47)
== END 2020-03-21 14:12 | DRG 313 ==
LOC: ED 14:24 → ED-I 14:39 → ED 14:39 → ED-I 16:22 → ED 16:34 → MS2 16:35
PROVIDERS: Family Medicine; ADMIT Internal Medicine; ATTEND Internal Medicine
DX: R07.9 Chest pain, unspecified (principal); I10 Essential (primary) hypertension; E11.9 Type 2 diabetes mellitus without complications; J44.9 Chronic obstructive pulmonary disease, unspecified; I25.10 Atherosclerotic heart disease of native coronary artery without angina pectoris; F03.90 Unspecified dementia, unspecified severity, without behavioral disturbance, psychotic disturbance, mood disturbance, and anxiety; E78.5 Hyperlipidemia, unspecified; Z95.1 Presence of aortocoronary bypass graft; Z95.5 Presence of coronary angioplasty implant and graft; Z87.891 Personal history of nicotine dependence; Z85.46 Personal history of malignant neoplasm of prostate; Z86.73 Personal history of transient ischemic attack (TIA), and cerebral infarction without residual deficits; Z20.828 Contact with and (suspected) exposure to other viral communicable diseases
CPT/HCPCS: G0378

== ENCOUNTER 2020-03-24 04:37 | Emergency (ER) | payer OTHER, MEDICARE ==
[~2020-03-24] VITALS: Ht 175.3 cm; Wt 86.0 kg
[2020-03-24 05:25] LABS: HEMATOCRIT 40.1 % (39.0-50.0); HEMOGLOBIN 13.2 g/dl (14.0-18.0); IMMATURE GRANULOCYTES 0.3 % (0.0-5.0); MEAN CELL VOLUME 95.2 fL CALC (80.0-100.0); MEAN CORPUSCULAR HGB 31.4 pG CALC (26.0-32.0); MEAN CORPUSCULAR HGB CONC 32.9 g/dL CAL (32.0-36.0); NEUT# 5.31 thou/uL (1.82-7.42); RED BLOOD COUNT 4.21 mill/uL (4.70-6.10); RED CELL DISTRI WIDTH 12.8 % (11.5-15.5)
[2020-03-24 05:39] LABS: ALBUMIN 3.9 g/dL (3.2-5.0); ALKALINE PHOSPHATASE 62 u/l (38-126); ANION GAP 11 (6-22 (CALC)); BUN 19 mg/dL (8-23); BUN/CREATININE RATIO 18 (12-20 (CALC)); CARBON DIOXIDE 25 mmol/l (22-30); CHLORIDE 104 mmol/l (95-108); GFR > 60 ML/MIN (>=60 (CALC)); GFR FOR AFR.AMER. > 60 ML/MIN (>=60 (CALC)); POTASSIUM 4.1 mmol/l (3.5-5.1); SGOT/AST 28 u/l (19-48); SODIUM 136 mmol/l (137-146); TOTAL PROTEIN 6.6 g/dL (6.3-8.2)
[2020-03-24 05:44] LABS: BILIRUBIN, TOTAL 0.6 mg/dL (0.0-1.4)
[2020-03-24 05:51] LABS: MYOGLOBIN 69 ng/mL (0 - 121)
[2020-03-24 05:56] LABS: PROTHROMBIN TIME 10.1 SECONDS (9.0-12.5)
[2020-03-24 08:41] LABS: URINE BILIRUBIN - DIPSTICK NEGATIVE (NEGATIVE); URINE BLOOD DIPSTICK NEGATIVE (NEGATIVE); URINE COLOR YELLOW; URINE GLUCOSE - DIPSTICK NEGATIVE (NEGATIVE); URINE KETONE NEGATIVE (NEGATIVE); URINE LEUK ESTERASE NEGATIVE (NEGATIVE); URINE NITRITE - DIPSTICK NEGATIVE (Negative); URINE PH 5.5 (4.5-8.0); URINE PROTEIN - DIPSTICK NEGATIVE (NEG-TRACE); URINE SPECIFIC GRAVITY 1.025; URINE UROBILINOGEN - DIPSTICK 0.2 E.U./dL (0.2)
[2020-03-24 11:15] VITALS: BP 132/63
[2020-05-11] MEDS ORDERED: LOPRESSOR25 MG PO (23:45)
[2020-05-11] MEDS ORDERED: TRAZODONE50 MG PO (23:46)
[2020-05-11] MEDS ORDERED: HYDROXYZ HCL25 MG PO (23:47)
== END 2020-03-24 11:07 | disposition short-term general hospital (02) | DRG 282 ==
LOC: ED 04:37 → ED-I 05:13 → ED 05:13 → ED-I 05:48 → ED 11:07
PROVIDERS: Emergency Medicine
DX: I21.4 Non-ST elevation (NSTEMI) myocardial infarction (principal); E11.9 Type 2 diabetes mellitus without complications; I10 Essential (primary) hypertension; I25.10 Atherosclerotic heart disease of native coronary artery without angina pectoris; F03.90 Unspecified dementia, unspecified severity, without behavioral disturbance, psychotic disturbance, mood disturbance, and anxiety; Z95.1 Presence of aortocoronary bypass graft; Z86.73 Personal history of transient ischemic attack (TIA), and cerebral infarction without residual deficits; Z20.828 Contact with and (suspected) exposure to other viral communicable diseases
CPT/HCPCS: J1644

== ENCOUNTER 2020-05-14 09:15 | Observation (INO) | payer OTHER, MEDICARE ==
[~2020-05-14] VITALS: Ht 175.3 cm; Wt 81.3 kg
[~2020-05-14 09:15] MED LIST changes: +HYDROXYZ HCL25 MG PO; +LOPRESSOR25 MG PO; +TRAZODONE50 MG PO
--- NOTE | 2020-05-14 09:15 | NUR ---
PATIENT TO ROOM VIA EMS STRETCHER.
--- NOTE | 2020-05-14 09:20 | NUR ---
REMOVED FROM BACK BOARD WITH MD AT BEDSIDE. C COLLAR FROM EMS REMAINS INTACT. PT C/O NECK ADN MID TO LOW BACK DISCOMFORT. DENIES PAIN WITH PELVIC ROCL. MAEW. SENSATION INTACT TO ALL EXTREMITIES.
[2020-05-14 09:50] LABS: HEMATOCRIT 39.4 % (39.0-50.0); HEMOGLOBIN 13.2 g/dl (14.0-18.0); IMMATURE GRANULOCYTES 0.2 % (0.0-5.0); MEAN CORPUSCULAR HGB 31.5 pG CALC (26.0-32.0); MEAN CORPUSCULAR HGB CONC 33.5 g/dL CAL (32.0-36.0); NEUT# 3.66 thou/uL (1.82-7.42); RED BLOOD COUNT 4.19 mill/uL (4.70-6.10); RED CELL DISTRI WIDTH 12.9 % (11.5-15.5)
[2020-05-14 10:07] LABS: ALBUMIN 3.6 g/dL (3.2-5.0); ALKALINE PHOSPHATASE 68 u/l (38-126); ANION GAP 12 (6-22 (CALC)); BILIRUBIN, TOTAL 0.8 mg/dL (0.0-1.4); BUN 12 mg/dL (8-23); BUN/CREATININE RATIO 11 (12-20 (CALC)); CARBON DIOXIDE 25 mmol/l (22-30); CHLORIDE 105 mmol/l (95-108); CREATININE 1.1 mg/dL (0.7-1.3); GFR > 60 ML/MIN (>=60 (CALC)); GFR FOR AFR.AMER. > 60 ML/MIN (>=60 (CALC)); POTASSIUM 3.7 mmol/l (3.5-5.1); SGOT/AST 26 u/l (19-48); SODIUM 138 mmol/l (137-146); TOTAL PROTEIN 6.3 g/dL (6.3-8.2)
--- NOTE | 2020-05-14 10:07 | NUR ---
EDP AT BEDSIDE TO DISCUSS POC WITH POA AND PT .
[2020-05-14] MEDS ORDERED: KETOCONAZOLE2 % EX (10:13)
[2020-05-14 10:19] LABS: MYOGLOBIN 287 ng/mL (0 - 121)
--- NOTE | 2020-05-14 11:00 | NUR ---
PATIENT RESTING IN STRETCHER IN NAD AND DENIES ANY NEEDS AT THIS TIME. CALL CARRIZALES WITHIN REACH. STEP-DAUGHTER AWARE OF PLAN OF CARE AND WAIT TIME.
--- NOTE | 2020-05-14 11:40 | NUR ---
PER EDP AUTH REMOVED C COLLAR AND PT REPOSITIONED FOR COMFORT. VSS. SCANT AMOUNT YELLOW URINE OBTAINED FOR UA. PT PLEASANT AND CONVERSIVE WITH USUAL SLIGHTLY SLURRED SPEECH. POA AT BEDSIDE
[2020-05-14 12:08] LABS: URINE BILIRUBIN - DIPSTICK NEGATIVE (NEGATIVE); URINE BLOOD DIPSTICK NEGATIVE (NEGATIVE); URINE COLOR YELLOW; URINE GLUCOSE - DIPSTICK NEGATIVE (NEGATIVE); URINE KETONE NEGATIVE (NEGATIVE); URINE LEUK ESTERASE NEGATIVE (NEGATIVE); URINE NITRITE - DIPSTICK NEGATIVE (Negative); URINE PH 5.5 (4.5-8.0); URINE PROTEIN - DIPSTICK NEGATIVE (NEG-TRACE); URINE UROBILINOGEN - DIPSTICK 0.2 E.U./dL (0.2)
--- NOTE | 2020-05-14 12:30 | NUR ---
PT RESTING COMFORTABLY IN NO DISTRESS. VSS. PT ALERT AND CONVERSIVE. POA AT BEDSIDE. BOTH UPDATED ON ADMIT AND AGREEABLE
--- NOTE | 2020-05-14 13:30 | NUR ---
PT TRANSPORTED TO MS ON TELE IN NO DISTRESS, PT TRANSFERED SELF FROM STRETCHER TO BED ON MS.
--- NOTE | 2020-05-14 13:30 | NUR ---
Admission Note Report Given to: MS Transported by: X Wheelchair X Stretcher Transported with: X Nurse Transporter X Patent IV O2 X Agricultural Engineering Technologist Location: ICU X MS2
--- NOTE | 2020-05-14 13:31 | NUR ---
PT ARRIVED TO UNIT VIA STRETCHER WITH ER STAFF; ALERT AND ORIENTED TO PERSON AND PLACE. UNABLE TO TELL WHICH HOSPITAL, DATE, OR AGE. POOR HISTORIAN AND FORGETFUL. PT IS ABLE TO STAND AND WALK WITH UNSTEADY GAIT TO BED; POSITIONED INTO SEMI FOWLERS. DENIES PAIN. RESPIRATIONS EVEN AND UNLABORED ON ROOM AIR. 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 IV SITE APPEARS HEALTHY AND FLUSHES; IV FLUIDS INITIATED. SIMONA HOSE APPLIED TO BLE. ABRASION TO RIGHT ELBOW, HEALING SCAB TO RIGHT KNEE, LARGE BRUISE TO LEFT WRIST, SCATTERED ECCHYMOSIS TO ALL EXTREMTIIES; FADING BRUISES TO RIGHT GROIN AND BETWEEN THIGHS, AND RASH TO GROIN AREA, BUTT, AND TOP BACK OF THIGHS WHERE PT ADMITS THAT HE REMAINS WET AFTER URINARY STRESS INCONTINENCE. OREINTED TO ROOM AND CALL LIGHT SYSTEM. PLAN OF CARE DISCUSSED. PT ENCOURAGED TO VERBALIZE CONCERNS. STATES UNDERSTANDING. SAFETY MEAURES IN PLACE INCLUDING BED ALARM. CALL LIGHT WITHIN REACH.
[2020-05-14 13:45] VITALS: BP 130/42
--- NOTE | 2020-05-14 15:06 | NUR ---
REVIEWED PATIENT'S CHART. PATIENT WILL BENEFIT FROM PT/OT TO TREAT PATIENT FOR FREQUENT FALLS. ORDER FOR PT/OT EVAL AND TREAT.
[2020-05-14 15:20] VITALS: BP 127/61
--- NOTE | 2020-05-14 16:01 | NUR ---
PT RESTING IN BED WITH EYES CLOSED. NO S/S OF DISTRESS AT THIS TIME. WILL CONTINUE TO MONTIOR.
[2020-05-14 19:00] VITALS: BP 116/56
--- NOTE | 2020-05-14 19:00 | NUR ---
REPORT RECEIVED FROM Jewels ARCINIEGA RN, CARE OF PT ASSUMED AT THIS TIME.
--- NOTE | 2020-05-14 20:00 | NUR ---
PHYSICAL ASSESMENT COMPLETE. PT CURRENTLY DENIES PAIN OR DISCOMFORT. SCHEDULED MEDS ADMINISTERED, SEE E-MAR. PT DENIES ANY NEEDS AT THIS TIME. PLAN OF CARE REVIEWED, PT DENIES QUESTIONS, VERBALIZES UNDERSTANDING. ITEMS WITHIN REACH, BED LOCKED IN LOW POSITION W/ BEDRAILS UP X2. CALL CARRIZALES WITHIN REACH, AGREES TO CALL PRN.
[2020-05-14 23:45] VITALS: BP 114/58
--- NOTE | 2020-05-15 00:30 | NUR ---
PT APPEARS TO BE SLEEPING COMFORTABLY, NO APPARENT DISTRESS, RESPIRATIONS REGULAR AND UNLABORED. ITEMS REMAIN WITHIN REACH, BED REMAINS LOCKED IN LOW POSITION W/ BEDRAILS UP X2. CALL CARRIZALES REMAINS WITHIN REACH.
[2020-05-15 04:00] VITALS: BP 114/46
[2020-05-15 05:28] LABS: HEMATOCRIT 41.9 % (39.0-50.0); HEMOGLOBIN 13.9 g/dl (14.0-18.0); MEAN CORPUSCULAR HGB 31.5 pG CALC (26.0-32.0); MEAN CORPUSCULAR HGB CONC 33.2 g/dL CAL (32.0-36.0); RED BLOOD COUNT 4.41 mill/uL (4.70-6.10); RED CELL DISTRI WIDTH 12.8 % (11.5-15.5)
[2020-05-15 05:54] LABS: ANION GAP 9 (6-22 (CALC)); BUN 9 mg/dL (8-23); BUN/CREATININE RATIO 10 (12-20 (CALC)); CARBON DIOXIDE 25 mmol/l (22-30); CHLORIDE 110 mmol/l (95-108); CREATININE 0.9 mg/dL (0.7-1.3); GFR > 60 ML/MIN (>=60 (CALC)); GFR FOR AFR.AMER. > 60 ML/MIN (>=60 (CALC)); MAGNESIUM 2.1 mg/dL (1.6-2.3); POTASSIUM 3.9 mmol/l (3.5-5.1); SODIUM 140 mmol/l (137-146)
[2020-05-15 07:15] VITALS: BP 116/56
--- NOTE | 2020-05-15 07:15 | NUR ---
PT LAYING IN BED. A&O TO SELF AND PLACE. ORIENTED PT TO CURRENT TIME. IV INFILTRATED IV INTACT UPON REMOVAL, NEW IV TO BE INITIATED. PT DENIES ANY PAIN AT THIS TIME. NO VOID NOTED, ENCOURAGED PT TO USE URINAL. PT TO BE BLADDER SCANNED TO CHECK FOR RESIDUAL. NO OTHER NEEDS AT THIS TIME. ASSESSMENT COMPLETED. DISCUSSED POC, REINFORCEMENT NEEDED. CALL LIGHT IN REACH. BED ALARM IN PLACE FOR SAFETY.
--- NOTE | 2020-05-15 08:14 | NUR ---
CONSULT TO DR CARRASQUILLO CALLED BY JONELLE PATHAK
--- NOTE | 2020-05-15 09:20 | NUR ---
BLADDER SCAN COMPLETED, 443 OF URINE. ENCOURAGED PT TO VOID, PT GIVEN URINAL. OUTPUT 350 ML.
[2020-05-15 10:30] VITALS: BP 135/65
--- NOTE | 2020-05-15 10:53 | NUR ---
PT AMBULATING HALLWAY WITH PHYSICAL THERAPY AT SIDE
--- NOTE | 2020-05-15 11:10 | NUR ---
PT WAS SEEN TODAY FOR GAIT TRAINING. HE WAS ABLE TO SIT UP FROM SUPINE WITH MIN A FROM THERAPIST; [id number] WITH MIN A. HIS IMMEDIATE STANDING BALANCE WAS GOOD WITH RW. HE THEN AMBULATED IN THE HALLWAY WITH RW AND CGA X 70 FT X 2. HE WAS GIVEN VERBAL CUES ON CORRECT POSTURE AND PROPER GAIT PATTERN. PT REPORTS MINIMAL SOB AFTER COMPLETING THE AMBULATION. SPO2= 100%, HR= 60 BPM. HE RETURNED TO HIS ROOM AND WAS GIVEN MIN A TO REPOSITION IN BED. CALL CARRIZALES WITHIN REACH, SIDE RAILS UP FOR SAFETY. BED ALARM WAS RESET. NO ADVERSE REACTIONS REPORTED OR NOTED AT THE END OF TX. AMPAC: 13 POINTS
--- NOTE | 2020-05-15 14:58 | NUR ---
VERBAL CONSENT TO OBTAIN MEDICAL RECORDS FROM [facility] OBTAINED FROM [facility]ONT[facility]. WITNESS BY JEMMA YEUNG
[2020-05-15 15:00] VITALS: BP 100/50
--- NOTE | 2020-05-15 17:12 | NUR ---
PT LAYING IN BED. NO DISTRESS NOTED. CREAM APPLIED TO BILATERAL ARMS. NO OTHER NEEDS AT THIS TIME. CALL LIGHT IN REACH. CONTINUE TO MONITOR.
[2020-05-15 19:00] VITALS: BP 108/43
--- NOTE | 2020-05-15 19:00 | NUR ---
REPORT RECEIVED FROM Juan Jose ZUNIGA RN, CARE OF PT ASSUMED AT THIS TIME.
--- NOTE | 2020-05-15 19:30 | NUR ---
PHYSICAL ASSESMENT COMPLETE. PT RESTING IN BED. REQUEST HELP FIXING HIS COVERS. PTS BLANKETS RE-ARRANGED FOR COMFORT. PT DENIES FURTHER NEEDS AT THIS TIME. PLAN OF CARE REVIEWED, PT VERBALIZES UNDERSTANDING AND DENIES QUESTIONS AT THIS TIME. CALL CARRIZALES WITHIN REACH, AGREES TO CALL PRN. BED LOCKED IN LOW POSITION WITH BEDRAILS UP X2 AND BED ALARM ON.
--- NOTE | 2020-05-15 21:00 | NUR ---
PT STATES "IM NOT TAKING THOSE, I DON'T NEED THEM." EDUCATION PROVIDED ON MEDICATION. PT UNRECEPTIVE TO EDUCATION, STATES "I KNOW WHAT THEY'RE FOR, I DONT NEED THEM." MEDICATION HELD PER PTS WISHES. Kandace RATLIFF APRN MADE AWARE. WILL CON'T TO MONITOR.
[2020-05-16] VITALS: BP 111/56
--- NOTE | 2020-05-16 00:59 | NUR ---
PT APPEARS TO BE SLEEPING COMFORTABLY, NO APPARENT DISTRESS, RESPIRATIONS REGULAR AND UNLABORED. CALL CARRIZALES REMAINS WITHIN REACH. BED REMAINS LOCKED IN LOW POSITION WITH BEDRAILS UP X2.
[2020-05-16 04:00] VITALS: BP 107/41
[2020-05-16 05:35] LABS: MEAN CELL VOLUME 95.7 fL CALC (80.0-100.0); MEAN CORPUSCULAR HGB 32.2 pG CALC (26.0-32.0); MEAN CORPUSCULAR HGB CONC 33.7 g/dL CAL (32.0-36.0); RED BLOOD COUNT 3.69 mill/uL (4.70-6.10); RED CELL DISTRI WIDTH 13.2 % (11.5-15.5)
[2020-05-16 05:44] LABS: HEMATOCRIT 35.3 % (39.0-50.0); HEMOGLOBIN 11.9 g/dl (14.0-18.0)
[2020-05-16 05:58] LABS: ANION GAP 9 (6-22 (CALC)); BUN 8 mg/dL (8-23); BUN/CREATININE RATIO 9 (12-20 (CALC)); CARBON DIOXIDE 25 mmol/l (22-30); CHLORIDE 109 mmol/l (95-108); CREATININE 0.9 mg/dL (0.7-1.3); GFR > 60 ML/MIN (>=60 (CALC)); GFR FOR AFR.AMER. > 60 ML/MIN (>=60 (CALC)); POTASSIUM 3.9 mmol/l (3.5-5.1); SODIUM 139 mmol/l (137-146)
--- NOTE | 2020-05-16 06:45 | NUR ---
REPORT RECEIVED FROM ANJANA BAKER. PT RESTNG IN BED. NO S/S OF DISTRESS AT THIS TIME. SAFETY PRECAUTIONS IN PLACE. WILL CONTINUE TO MONITOR.
[2020-05-16 07:10] VITALS: BP 118/49
--- NOTE | 2020-05-16 07:10 | NUR ---
PT RESTING IN BED, PT SEEMS AGGITATED ASKING "CAN I SPEAK TO SOMEONE!" EXPERIMENTAL WORKER ASKED WHO HE WAS WANTING TO SPEAK TO. PT UNABLE TO TELL EXPERIMENTAL WORKER WHO HE WOULD LIKE TO TALK TO, PT THROWS HIS ARMS UP. PT ALLOWED EXPERIMENTAL WORKER TO OBTAIN VS AND COMPLETE ASSESSMENT. RESPIRATIONS ARE EVEN AND UNLABORED ON RA. LUNGS SOUND CLEAR/DIMINISHED. PEDAL PULSES ARE WEAK. PT DENIES ANY PAIN AT THIS TIME. SAFETY PRECAUTIONS IN PLACE. WILL CONTINUE TO MONITOR.
--- NOTE | 2020-05-16 08:43 | NUR ---
AND KRISS DE LA FUENTE AT BEDSIDE
--- NOTE | 2020-05-16 10:25 | NUR ---
PATIENT AMBULATING THE HALLS WITH PHYSICAL THERAPY.
[2020-05-16 11:00] VITALS: BP 121/63
--- NOTE | 2020-05-16 11:26 | NUR ---
PT RESTING IN BED, WITH EYES CLOSED. NO S/S OF DISTRESS AT THIS THIS TIME. SAFETY PRECAUTIONS IN PLACE.
--- NOTE | 2020-05-16 12:01 | NUR ---
PT SEEN FOR PT TREATMENT. PT LYING IN BED, AWAKE, ALERT BUT DISORIENTATED. PT COOMPLETED BED MOBILITY, SUPINE TO SIT AND SIT TO SUPINE WITH SET UP. SIT TO STAND TRANSFER WITH USE OF RW AND MIN A X 1. VERBAL CUES FOR PROPER HAND POSITION, TRANSFERS TECHNIQUE AND CORRECT USE OF WALKER. PT REQUIRED SEVERAL ATTEMPTES TO STAND. UPON INITIAL PT WAS UNSTEADY, STABILIZING BY BRACING BACK OF LEGS AGAINST BED. PT AMBULATED TO BATHROOM WITH RW AND CGA. WITH SUPERVISION PT STATICALLY STOOD WITHOUT SUPPORT TO URINATE. PT BECAME VERY STARTLED WHEN TOILET WAS FLUSHED. HE GRABBED HIS EARS AND LOST HIS BALANCE. PT REPORTS HE IS SENSITIVE TO LOUD NOISES. PT THEN AMBULATED IN HALLWAY WITH RW, CGA 80FT X 2. HE EXPERIENCED 1 LOB WHEN AVOIDING ANOTHER PATIENT IN HALLWAY. UPON DIRECTIONAL CHANGE HE PICKED THE WALKER OFF THE FLOOR. VERBAL CUES PROVIDED FOR PROPER USE OF WALKER, POSITIONING WITHIN WALKER FRAME AND UPRIGHT POSTURE. PT WITH NO COMPLAINTS OF SOB MAINTAINING FULL CONVERSATION. PT TRANSFERRED BACK TO BED WITH SET UP. PT WITH NO ADVERSE EFFECTS, CALL CARRIZALES IN REACH, BED ALARM ARMED. DISCHARGE RECOMMENDATION IS FOR RETURN TO [facility] WITH HOME HEALTH SERVICES.
--- NOTE | 2020-05-16 12:37 | NUR ---
IV #22 RFA REMOVED FOR DISCHARGE, CATHETER INTACT, PT TOLERATED WELL.
--- NOTE | 2020-05-16 12:47 | NUR ---
Discharge instructions given. Patient verbalizes understanding of same. Discharged in stable condition via Wheelchair to ACLF with staff. All belongings sent with pt.
== END 2020-05-16 12:47 | DRG 310 ==
LOC: ED 09:15 → ED-I 11:40 → ED 11:52 → MS2 11:53
PROVIDERS: Emergency Medicine; Nurse Practitioner; ADMIT Internal Medicine; ATTEND Internal Medicine
DX: R00.1 Bradycardia, unspecified (principal); T44.7X5A Adverse effect of beta-adrenoreceptor antagonists, initial encounter; S09.90XA Unspecified injury of head, initial encounter; S39.012A Strain of muscle, fascia and tendon of lower back, initial encounter; F03.90 Unspecified dementia, unspecified severity, without behavioral disturbance, psychotic disturbance, mood disturbance, and anxiety; E11.9 Type 2 diabetes mellitus without complications; I25.119 Atherosclerotic heart disease of native coronary artery with unspecified angina pectoris; I10 Essential (primary) hypertension; I48.91 Unspecified atrial fibrillation; E78.5 Hyperlipidemia, unspecified; J44.9 Chronic obstructive pulmonary disease, unspecified; W19.XXXA Unspecified fall, initial encounter; Y92.099 Unspecified place in other non-institutional residence as the place of occurrence of the external cause; Z87.891 Personal history of nicotine dependence; Z91.81 History of falling; Z95.5 Presence of coronary angioplasty implant and graft; Z95.1 Presence of aortocoronary bypass graft; Z86.73 Personal history of transient ischemic attack (TIA), and cerebral infarction without residual deficits; Z85.46 Personal history of malignant neoplasm of prostate; Z79.02 Long term (current) use of antithrombotics/antiplatelets; Z79.82 Long term (current) use of aspirin; Z20.828 Contact with and (suspected) exposure to other viral communicable diseases

== ENCOUNTER 2020-05-19 05:36 | Emergency (ER) | payer OTHER, MEDICARE ==
[~2020-05-19] VITALS: Ht 175.3 cm; Wt 89.0 kg
[~2020-05-19 05:36] MED LIST changes: +KETOCONAZOLE2 % EX
[2020-05-19 08:15] VITALS: BP 117/57
== END 2020-05-19 08:54 | DRG 605 ==
LOC: ED 05:36
DX: S50.311A Abrasion of right elbow, initial encounter (principal); S09.90XA Unspecified injury of head, initial encounter; I10 Essential (primary) hypertension; E11.9 Type 2 diabetes mellitus without complications; F03.90 Unspecified dementia, unspecified severity, without behavioral disturbance, psychotic disturbance, mood disturbance, and anxiety; I25.10 Atherosclerotic heart disease of native coronary artery without angina pectoris; I48.91 Unspecified atrial fibrillation; W06.XXXA Fall from bed, initial encounter; Y92.092 Bedroom in other non-institutional residence as the place of occurrence of the external cause; Z91.81 History of falling; Z86.73 Personal history of transient ischemic attack (TIA), and cerebral infarction without residual deficits; Z95.1 Presence of aortocoronary bypass graft

== ENCOUNTER 2022-06-30 03:30 | Emergency (ER) | payer OTHER, MEDICARE ==
[~2022-06-30] VITALS: Ht 175.3 cm; Wt 79.5 kg
[2022-06-30] VITALS (18 sets, daily range): BP systolic 92–134; BP diastolic 40–113
[2022-06-30] MEDS ORDERED: BUSPAR5 M1 PO (05:40)
[2022-06-30 05:45] LABS: HEMATOCRIT 38.7 % (39.0-50.0); HEMOGLOBIN 13.2 g/dl (14.0-18.0); IMMATURE GRANULOCYTES 0.2 % (0.0-5.0); MEAN CELL VOLUME 96.5 fL CALC (80.0-100.0); MEAN CORPUSCULAR HGB 32.9 pG CALC (26.0-32.0); MEAN CORPUSCULAR HGB CONC 34.1 g/dL CAL (32.0-36.0); NEUT# 3.08 thou/uL (1.82-7.42); RED BLOOD COUNT 4.01 mill/uL (4.70-6.10); RED CELL DISTRI WIDTH 13.5 % (11.5-15.5)
[2022-06-30] MEDS ORDERED: LOPRESSOR25 M1 PO (05:46)
[2022-06-30 06:03] LABS: ALBUMIN 4.2 g/dL (3.2-5.0); ALKALINE PHOSPHATASE 67 u/l (38-126); ANION GAP 17 (6-22 (CALC)); BUN 14 mg/dL (8-23); BUN/CREATININE RATIO 13 (12-20 (CALC)); CARBON DIOXIDE 25 mmol/l (22-30); CHLORIDE 106 mmol/l (95-108); CREATININE 1.1 mg/dL (0.7-1.3); GFR FOR AFR.AMER. > 60 ML/MIN (>=60 (CALC)); GFR OTHER RACES > 60 ML/MIN (>=60 (CALC)); SGOT/AST 28 u/l (19-48); SODIUM 143 mmol/l (137-146); TOTAL PROTEIN 7.1 g/dL (6.3-8.2)
[2022-06-30 06:15] LABS: BILIRUBIN, TOTAL 0.4 mg/dL (0.0-1.4)
[2022-06-30 06:28] LABS: MYOGLOBIN 119 ng/mL (0 - 121)
== END 2022-06-30 08:56 | DRG 948 ==
LOC: ED 03:30
PROVIDERS: Emergency Medicine
DX: R53.1 Weakness (principal); I25.810 Atherosclerosis of coronary artery bypass graft(s) without angina pectoris; R06.02 Shortness of breath; R00.1 Bradycardia, unspecified; I10 Essential (primary) hypertension; E11.9 Type 2 diabetes mellitus without complications

== ENCOUNTER 2022-10-09 12:01 | Observation (INO) | payer OTHER, MEDICARE ==
[~2022-10-09] VITALS: Ht 175.3 cm; Wt 75.0 kg
[2022-10-09] VITALS (14 sets, daily range): BP systolic 81–122; BP diastolic 27–64
[~2022-10-09 12:01] MED LIST changes: +BUSPAR5 M1 PO; +LOPRESSOR25 M1 PO
--- NOTE | 2022-10-09 12:05 | NUR ---
PT TO ROOM 11 VIA EMS
--- NOTE | 2022-10-09 13:08 | NUR ---
PT REPOSITIONED AND PROVIDED WATER.
[2022-10-09 13:16] LABS: BASO% 0.8 % (0-3); EOS% 0.8 % (0-8); HEMATOCRIT 41.2 % (39.0-50.0); HEMOGLOBIN 13.5 g/dl (14.0-18.0); IMMATURE GRANULOCYTES 0.2 % (0.0-5.0); MEAN CELL VOLUME 96.9 fL CALC (80.0-100.0); MEAN CORPUSCULAR HGB 31.8 pG CALC (26.0-32.0); MEAN CORPUSCULAR HGB CONC 32.8 g/dL CAL (32.0-36.0); MONO% 11.6 % (2-13); NEUT# 4.46 thou/uL (1.82-7.42); NEUT% 73.6 % (42-76); RED BLOOD COUNT 4.25 mill/uL (4.70-6.10); RED CELL DISTRI WIDTH 12.9 % (11.5-15.5)
[2022-10-09 13:45] LABS: ALBUMIN 3.7 g/dL (3.2-5.0); ALKALINE PHOSPHATASE 54 u/l (38-126); ANION GAP 12 (6-22 (CALC)); BUN 17 mg/dL (8-23); BUN/CREATININE RATIO 16 (12-20 (CALC)); CARBON DIOXIDE 23 mmol/l (22-30); CHLORIDE 106 mmol/l (95-108); GFR FOR AFR.AMER. > 60 ML/MIN (>=60 (CALC)); GFR OTHER RACES > 60 ML/MIN (>=60 (CALC)); POTASSIUM 3.9 mmol/l (3.5-5.1); SGOT/AST 26 u/l (19-48); SODIUM 138 mmol/l (137-146); TOTAL PROTEIN 6.6 g/dL (6.3-8.2)
[2022-10-09 13:51] LABS: BILIRUBIN, TOTAL 0.6 mg/dL (0.2-1.3)
--- NOTE | 2022-10-09 14:00 | NUR ---
PT IS GETTING OOB AND IS BEING REORIENTED BACK TO BED.
--- NOTE | 2022-10-09 15:45 | NUR ---
PATIENT ARRIVED FROM ER TO [facility] ROOM 271. AUTO BP WAS LOW SO YOLANDA BP WAS DONE 122/64.
--- NOTE | 2022-10-09 15:54 | NUR ---
TRANSFERRED PT TO MS2 271, BED ALARM IS ACTIVE
--- NOTE | 2022-10-09 16:32 | NUR ---
PATIENT BECAME AGITATED STATED THAT HE WANTED TO GO HOME THAT HE DID NOT NEED HELP. REFUSE TO STAY IN HIS ROOM. CAME OUT OF HIS ROOM WITHOUT A FACE MASK SINCE PATIENT IS POSITIVE FOR COVID. INFORMED PATIENT ON IMPORANCE OF USING A FACE MASK WHEN POSITIVE WITH COVID TO PREVENT THE SPREAD OF IT TO OTHER INDIVIDUALS IN THE HOSPITAL. INFORMED PATIENT THAT NURSE WILL BE CONTACTING DOCTOR ABOUT HIM WANTING TO GO HOME. NOTIFIED AWAITING RESPONSE.
--- NOTE | 2022-10-09 17:30 | NUR ---
AFTER ATIVAN PATIENT IS MORE RELAXED BUT STILL WANTING TO GET OUT OF ROOM. PATIENT HELP GET CHANGE. NEW IV PLACE DUE TO PATIENT TAKING OUT PREVIOUS ONE. ABX GIVEN LATE DUE TO PATIENT NOT WANTING THE NURSE OR STAFF TO BE CLOSE TO HIM OR TOUCH HIM EARLIER. AT THIS TIME PATIENT HAS A SITTER. WILL CONTINUE TO MONITOR.
--- NOTE | 2022-10-09 19:43 | NUR ---
PATIENT RESTING IN BED, REMAINS ON ISOLATION FOR COVID 19, ONE ON ONE SITTER, CALL LIGHT IN REACH.
[2022-10-10] VITALS (8 sets, daily range): BP systolic 92–144; BP diastolic 51–74
--- NOTE | 2022-10-10 | NUR ---
PATIENT RESTING WITH EYES CLOSED, NOT IN DISTRESS. BED ALARM ZE PLACE.
--- NOTE | 2022-10-10 05:17 | NUR ---
PATIENT HAS NOT VOIDED, PATIENT WAS INCONTINENT BLADDER BEFORE THE START OF THE SHIFT, BLADDER SCANNED PATENT 312, PATIENT REFUSED TO OPEN EYES, CLOSES EYES TIGHT, BUT TURNED SELF TO THE OTHER SIDE AND AGREED TO WEAR NON SKID SOCKS, CALL LIGHT IN REACH, BED ALARM IN PLAC.
[2022-10-10 05:23] LABS: HEMATOCRIT 37.5 % (39.0-50.0); HEMOGLOBIN 12.6 g/dl (14.0-18.0); LYMPH% 12.9 % (15-41); MEAN CELL VOLUME 96.4 fL CALC (80.0-100.0); MEAN CORPUSCULAR HGB 32.4 pG CALC (26.0-32.0); MEAN CORPUSCULAR HGB CONC 33.6 g/dL CAL (32.0-36.0); MONO% 4.6 % (2-13); NEUT# 3.39 thou/uL (1.82-7.42); NEUT% 82.5 % (42-76); RED BLOOD COUNT 3.89 mill/uL (4.70-6.10); RED CELL DISTRI WIDTH 12.8 % (11.5-15.5)
[2022-10-10 05:29] LABS: ALBUMIN 3.2 g/dL (3.2-5.0); ALKALINE PHOSPHATASE 53 u/l (38-126); ANION GAP 9 (6-22 (CALC)); BUN 18 mg/dL (8-23); BUN/CREATININE RATIO 21 (12-20 (CALC)); C-REACTIVE PROTEIN 2.8 mg/dL (0-0.9); CARBON DIOXIDE 24 mmol/l (22-30); CHLORIDE 109 mmol/l (95-108); CREATININE 0.9 mg/dL (0.7-1.3); GFR FOR AFR.AMER. > 60 ML/MIN (>=60 (CALC)); GFR OTHER RACES > 60 ML/MIN (>=60 (CALC)); POTASSIUM 4.2 mmol/l (3.5-5.1); SGOT/AST 23 u/l (19-48); SODIUM 137 mmol/l (137-146); TOTAL PROTEIN 5.8 g/dL (6.3-8.2)
[2022-10-10 05:33] LABS: BILIRUBIN, TOTAL 0.2 mg/dL (0.2-1.3)
--- NOTE | 2022-10-10 07:22 | NUR ---
PT RESTING IN LOW FOWLERS POSITION.A/O TO PERSON. HEART RHYTHM NORM RESPIRAITONS ON ROOM AIR IV SITE NOTED TO RFA NS INFUSING. EDCUATED PT NEED OF URINE SAMPLE PT STATED "I DONT HAVE TO GO" PT STATED HAS NOT VOIDED TO BE REASSESSED IF PUREWICK IN PLACE AND FUNCTIONING. PT DENIES ADDITIONAL NEEDS AT THE TIME ALL SAFETY PRECAUTIONS IN PLACE. BED ALARM ACIVE.
--- NOTE | 2022-10-10 11:31 | NUR ---
pt alexander initiated 16f. pt tolerated well urine draining per gravity.
--- NOTE | 2022-10-10 12:08 | NUR ---
PT SHOWS NO SIGNS OF ALLERGIC REACTION TO BORJAS INSERTION. PROVIDER ORDER FOR BENADRYL UNVERIFIED AT THE MOMENT. PT ATTEMPT TO WAKE FOR LUNCH CONSUMPTION. PT STATED WOULD LIKE TO SLEEP.
[2022-10-10 12:28] LABS: URINE BILIRUBIN - DIPSTICK NEGATIVE (NEGATIVE); URINE BLOOD DIPSTICK TRACE-INTACT (NEGATIVE); URINE COLOR YELLOW; URINE GLUCOSE - DIPSTICK NEGATIVE (NEGATIVE); URINE KETONE TRACE mg/dL (NEGATIVE); URINE LEUK ESTERASE NEGATIVE (NEGATIVE); URINE PROTEIN - DIPSTICK NEGATIVE (NEG-TRACE); URINE SPECIFIC GRAVITY >=1.030; URINE UROBILINOGEN - DIPSTICK 0.2 E.U./dL (0.2)
[2022-10-10 12:39] LABS: URINE NITRITE - DIPSTICK NEGATIVE (Negative)
--- NOTE | 2022-10-10 15:48 | NUR ---
PT AGITATED PT STATED WANTED TO DC FROM HOSPITAL. PT A/O TO SELF PT DOES NOT KNOW MONTH OR PLACE OF LOCATION. PT EDUCATED ON STATUS OF CARE PT CAN NOT LEAVE PER DEMENTIA. PT MEDICATED PER EMAR. ALL SAFETY PRECAUTIONS IN PLACE WITH CALL LIGHT IN REACH.BED ALARM ACTIVE.
--- NOTE | 2022-10-10 20:00 | NUR ---
PT IN BED AWAKE TRYING TO GET OUT OF BED. PT REMINDED THAT HE HAS A BORJAS CATH. PT ORIENTED TO SELF. PT STATES THAT HE HAS TO GO HIS ROOM, THAT THIS IS NOT HIS ROOM. PT REORIENTED. BUT IN SUCCESFUL BEHAVIOUS CONTINUES. PT PULL IV BEFORE SHIFT CHANGE. NEW IV STARTED 20G TO LFA NS AT 100 ML/HR INFUSING WITHOUT COMPLICATIONS. BED ALARM ON. BED IN LOWEST POSITION AND CALL LIGHT IN REACH.
--- NOTE | 2022-10-10 22:30 | NUR ---
PT NOTED AGITATED TRYING TO GET OUT OF BED PULLING ON BORJAS CATH. REORIENTED BUT BEHIVIOR CONTINUE. PT MEDICATED PER SEP. SITTER ARRIVE TO ROOM.
--- NOTE | 2022-10-10 23:30 | NUR ---
PT CONTINUES AGITATED TRING TO LEAVE BED AND OUT OF ROOM. DR ORTEGA NOTIFIED OF BEHAVIOR. DR ORDER ZYPREXA 2.5 MG IM NOW. SEP UPDATED. PT MEDICATED PER SEP SITTER AT BEDSIDE. CALL LIGHT IN REACH. BED IN LOWEST POSITION. BED ALAR ON.
--- NOTE | 2022-10-11 00:20 | NUR ---
PT IN BED AWAKE BREATHING EVEN AN UNLABORED. NO S/S OF DISTRESS NOTED. CALL IN REACH AND BED IN LOWEST POSITION. SIITER AT DESIDE.
[2022-10-11 03:51] VITALS: BP 134/70
--- NOTE | 2022-10-11 03:56 | NUR ---
PT IN BED AWAKE. BREATHING EVEN AND UNLABORED. NO S/S OF DISTRESS NOTED. CALL LIGHT IN REACH BED IN LOWEST POSITION. SITTER AT BEDSIDE.
--- NOTE | 2022-10-11 08:00 | NUR ---
SHIFT CHANGE REPORT, PT AWAKE DISORIENTED, CONFUSED, HALUCINATING AND CLIMBING OOB, NO C/O DISCOMFORT BUT RESTLESS, IVF INFUSING, CALL CARRIZALES IN REACH AND BED LOCKED IN LOWEST POSITION WITH ALARM ACTIVATED, WILL CONTINUE TO MONITOR.
[2022-10-11 09:09] VITALS: BP 141/60
--- NOTE | 2022-10-11 11:47 | NUR ---
RESTLES, CLIMBING OOB, ASSISTED TO RECLINER, BODY ALARM PLACED. DR AYERS GAVE OK FOR SITTER, WILL CONTINUE TO MONITOR.
[2022-10-11 18:38] VITALS: BP 119/58
--- NOTE | 2022-10-11 20:00 | NUR ---
PT TRING TO GET OUT OF BED AND PULLING ON BORJAS STATING HE HAS TO LEAVE AND ASKING FOR HIS PANTS. PT REORIENTED PT UNSUCCESSFUL. PT MEDICATED PER MAR. ASSESMENT COMPLETED. CALL LIGHT IN REACH AND BED IN LOWEST POSITION.
--- NOTE | 2022-10-12 01:36 | NUR ---
PT IN BED RESTING WITH EYES CLOSED BREATHING EVEN AND UNLABORED. NO S/S OF DISTRESS NOTED. CALL LIGHT IN REACH BED IN LOWEST POSITION. BED ALARM ON. SITTER IN HALLWAY.
[2022-10-12 03:21] VITALS: BP 134/49
[2022-10-12 06:30] VITALS: BP 136/69
--- NOTE | 2022-10-12 07:42 | NUR ---
PT IN BED RESTING WITH EYES CLOSE WITH EPISODES OF CONFUSING WHEN PT WAKES UP. NO S/S OF DISTRESS NOTED. BREATHING EVEN AND UNLABORED. CALL LIGHT IN REACH AND BED IN LOWEST POSITION. BED ALARM ON.
--- NOTE | 2022-10-12 08:15 | NUR ---
PATIENT RESTING REPOSITIONED. PATIENT WAS HARD TO UNDERSTAND DUE HALLUCINATING AND GARGLE SPEECH. PATIENT TOOK ALL MORNING MEDICATINS BUT WAS NOT ABLE TO COMMUNICATE WITH NURSE PROPERLY DUE TO THE HALLUCINATIONS. CALL LIGHT WITHIN REACH, SITTER IN THE HARDY, AND BED IN THE LOWEST POSITION. WILL CONTINUE TO MONITOR.
--- NOTE | 2022-10-12 10:11 | NUR ---
PATIENT CONTINUE TO TRY AND PULL OUT BORJAS CATH. PATIENT IS BEING REORIENTED MUCH POSSIBLE.
--- NOTE | 2022-10-12 16:00 | NUR ---
PATIENT CONTINUE TO TOUCH AND PULL ON TUBING. PATIENT AT TIMES ABLE TO LISTEN TO DIRECTIONS. DR MANNING NURSE TO AVOID GIVEN ATIVAN IF POSSIBLE SINCE PATIENT IS NOT ABLE TO VERBALIZE PROPERLY SINCE HE IS MOSTLY GROGGY. AT THIS TIME PATIENT STILL HAS A SITTER.
[2022-10-12 18:01] VITALS: BP 122/53
--- NOTE | 2022-10-12 20:00 | NUR ---
PATIENT RESTING IN BED WITH SITTER AT BEDSIDE FOR PATIENT SAFETY. PATIENT IS VERY AGITATED AND CONFUSED TRYING TO CLIMB OOB. PATIENT IS PULLING AT BORJAS CATH DREAINING PINK TINGED URINE. ATTEMPT TO REASON WITH PATIENT IS NOT SUCCESSFUL. MEDICATED WITH ATIVAN 0.5MG VIA LEFT FOREARM IV SITE. SITE IS CURRENTLY HEALTHY. PATIENT WAS PROVIDED WITH HS MEDS GIVEN IN [place]. PATIENT DID EAT WELL FOR DINNER PPER EMPLOYEE DEVELOPMENT SPECIALIST AT BEDSIDE-DOES NEED ASSISTANCE. BED ALARM IN PLACE FOR PATIENT SAFETY., SITTER AT BEDSIDE FOR PATIENT SAFETY. WILL CONT TO MONITOR.
--- NOTE | 2022-10-13 | NUR ---
PATIENT RESTING IN BED WITH SITTER AT BEDSIDE FOR PATIENT SAFETY. CONT TO BE CONFUSED. TALKING INAPPROPRIATELY TO HIM SELF. CONT TO TRY TO GET OOB AT TIMES-ATTEMPTING TO PULL ON BORJAS CATH. UNABLE TO LEAVE IV IN PLACE PATIENT TRYS TO PULL IV AND TUBING OUT. BED ALARM IN PLACE FOR PATIENT SAFETY. WILL CONT TO MONITOR.
--- NOTE | 2022-10-13 02:53 | NUR ---
PATIENT RESTING IN BED WITH SITTER AT BEDSIDE FOR PATIENT SAFETY. PATIENT IS VERY AGITATED TRYING TO GET OOB. VERY CONFUSED. PULLING AT BORJAS CATH DRAINING PINK TINGED URINE. ATTEMPT TO REASON WITH PATIENT WAS NOT SUCCESSFUL. MEDICATED WITH ATIVAN 0.5MG IVP VIA LEFT FOREARM IV SITE. SITE IS CURRENTLY HEALTHY. PATIENT WAS PROVIDED WITH HS MEDS GIVEN IN [place]. PATIENT DID EAT WELL FOR DINNER PER EQUIPMENT TECH AT BEDSIDE. BED ALRM IN PLACE. SITTER AT BEDSIDE FOR PATIENT SAFETY. WILL CONT TO MONITOR.
[2022-10-13 02:56] VITALS: BP 162/70
--- NOTE | 2022-10-13 04:01 | NUR ---
PATIENT IS FINALLY RESTING QUIETLY WITH EYES CLOSED AND RESPS EVEN AND UNLABORED. BORJAS PATENT AND DRAINING YELLOW URINE. SITTER AT BEDSIDE FOR PATIENT SAFETY. CALL LIGHT IN REACH. BED ALARM IN PLACE FOR PATIENT SAFETY. WILL CONT TO MONITOR.
[2022-10-13 06:04] VITALS: BP 141/62
--- NOTE | 2022-10-13 07:51 | NUR ---
PT CURRENTLY SLEEPING. VITAL SIGNS STABLE. SITTER WATCHING PT. NO NEEDS AT THIS TIME.
--- NOTE | 2022-10-13 09:58 | NUR ---
DR AYERS NOTIFIED THAT PT VERY LETHARGIC AND UNABLE TO TAKE MEDICINE.
--- NOTE | 2022-10-13 10:45 | NUR ---
Attempted treatment this am, BIT TAPPER report pt was up most of night and has been agitated. He was sleeping at this am and no treatment given.
--- NOTE | 2022-10-13 11:59 | NUR ---
PT RESTING COMFORTABLY. VITAL SIGNS STABLE. SITTER WAITING OUTSIDE PT'S ROOM
--- NOTE | 2022-10-13 13:09 | NUR ---
GLOBAL SALES EXECUTIVE ATTEMPTED TO SEE PT. PT WAS SLEEPING AND NOT AROUSABLE. WILL F/U WITH PT TOMORROW.
[2022-10-13 14:22] VITALS: BP 143/49
--- NOTE | 2022-10-13 16:30 | NUR ---
PT RESTING COMFORTABLY VITAL SIGNS STABLE. NO NEEDS AT THIS TIME. SITTER WATCHING PT.
--- NOTE | 2022-10-13 20:26 | NUR ---
Patient on airborne precautions r/t covid 19 dx. Currently resting in bed with eyes closed. Not easily aroused but has easy unlabored breathing. Lung sounds clear. Pulses palpable. No s/s of pain or distress. Sitter at bedisde.
[2022-10-13 21:16] VITALS: BP 133/54
[2022-10-14] VITALS (7 sets, daily range): BP systolic 92–168; BP diastolic 44–58
--- NOTE | 2022-10-14 03:15 | NUR ---
Patient able to be aroused during care and assessment but remains sleepy this shift. Patient noted to reposition self in bed. Respirations even and unlabored. No signs of discomfort or distress. Bed in lowest position. Airborne precautions remain on place. Sitter at bedside.
[2022-10-14 05:25] LABS: BASO% 0.2 % (0-3); EOS% 3.6 % (0-8); MEAN CELL VOLUME 93.9 fL CALC (80.0-100.0); MEAN CORPUSCULAR HGB 31.8 pG CALC (26.0-32.0); MEAN CORPUSCULAR HGB CONC 33.8 g/dL CAL (32.0-36.0); MONO% 6.4 % (2-13); NEUT# 6.46 thou/uL (1.82-7.42); NEUT% 72.8 % (42-76); RED BLOOD COUNT 4.91 mill/uL (4.70-6.10); RED CELL DISTRI WIDTH 12.7 % (11.5-15.5)
[2022-10-14 05:26] LABS: HEMATOCRIT 46.1 % (39.0-50.0); HEMOGLOBIN 15.6 g/dl (14.0-18.0)
[2022-10-14 05:53] LABS: ALBUMIN 3.4 g/dL (3.2-5.0); ALKALINE PHOSPHATASE 70 u/l (38-126); ANION GAP 11 (6-22 (CALC)); BILIRUBIN, TOTAL 0.4 mg/dL (0.2-1.3); BUN 11 mg/dL (8-23); BUN/CREATININE RATIO 13 (12-20 (CALC)); C-REACTIVE PROTEIN 2.7 mg/dL (0-0.9); CARBON DIOXIDE 27 mmol/l (22-30); CHLORIDE 104 mmol/l (95-108); CREATININE 0.9 mg/dL (0.7-1.3); GFR FOR AFR.AMER. > 60 ML/MIN (>=60 (CALC)); GFR OTHER RACES > 60 ML/MIN (>=60 (CALC)); POTASSIUM 3.6 mmol/l (3.5-5.1); SGOT/AST 42 u/l (19-48); SODIUM 138 mmol/l (137-146); TOTAL PROTEIN 6.4 g/dL (6.3-8.2)
--- NOTE | 2022-10-14 08:00 | NUR ---
SHIFT CHANGE REPORT, PT SLEEPING SOUNDLY, BREATHING EVEN AND NON-LABORED, IVF INFUSING, NO SIGN DISCOMFORT, CALL CARRIZALES IN REACH AND BED LOCKED IN LOWEST POSITION.
--- NOTE | 2022-10-14 12:00 | NUR ---
SITTING UP IN RECLINER, COMFORTABLE, NO C/O DISCOMFORT
--- NOTE | 2022-10-14 12:00 | NUR ---
STABLE SITTING UP IN RECLINER, SITTER BY DOOR.
--- NOTE | 2022-10-14 16:59 | NUR ---
BORJAS REMOVED PER MD'S ORDER, TOLERATED WELL WILL MONITOR FOR URINATIOIN.
--- NOTE | 2022-10-14 20:00 | NUR ---
RECEVIED REPORT FROM [facility] NURSE. PT NOTED LAYING IN BED SUPINE. INFORMED THAT PT BORJAS CATHETER WAS REMOVED AND STILL AWAITING POST VOID. ENCOURAGED PT TO USE URINAL. BLADDER SCANNED PT, ONLY SHOWING 56MLS IN BLADDER AT THIS TIME. PT DENIES ANY URGENCY/ FEELING OR PRESSURE TO GO AT THIS TIME. WILL CONITNUE TO MONITOR. SITTER PRESENT IN ROOM. CALL LIGHT WITHIN REACH AND SAFETY PRECAUTIONS IN PLACE. BED ALARM ON.
--- NOTE | 2022-10-15 | NUR ---
PT IN BED SLEEPING ON RT SIDE. SITTER IN ROOM WITH PT. NO S/S OF DISTRESS. PT HAS NOT VOIDED YET, WILL CONTINUE TO MONITOR. CALL LIGHT WITHIN REACH AND SAFETY PRECATUIONS IN PLACE. BED ALARM.
[2022-10-15 03:12] VITALS: BP 111/48
--- NOTE | 2022-10-15 04:34 | NUR ---
PT IN BED SLEEPING. PT STILL HAS NOT VOIDED. BLADDER SCANNED SHOWED 312ML. INFORMED PHYSICIAN STEEL ANALYST, INSTRUCTED TO KEEP IV FLUIDS GOING WITH NO NEW ORDERS. CALL LIGHT WITHIN REACH AND SAFETY PRECATUIONS IN PLACE. SITTER IN ROOM WITH PT.
--- NOTE | 2022-10-15 08:00 | NUR ---
GOT REPORT ON PATIENT FROM [facility] NURSE. PATIENT ASSESSED. AOX2, PATIENT IS IN BED EATING BREAKFAST. NO COMPLAINTS AT THIS TIME. PATIENT STILL HAS NOT VOIDED SINCE 4PM YESTERDAY. BLADDER SCAN DONE AND HAS A TOTAL OF 432ML. PATIENT IS NOT IN ANY DISCOMFORT. MD MADE AWARE AND STATES THAT HE WILL START PATIENT ON MEDICATION FOR IT. FALL PRECAUTIONS IN PLACE WELL A SITTER FOR PATIENT.
[2022-10-15 08:46] VITALS: BP 111/48
--- NOTE | 2022-10-15 12:00 | NUR ---
PATIENT VOIDED PER MD PATIENT CAN GO HOME BACK TO THE [facility]. FIELD SERVICE ANALYST SETTING UP TIME FOR THEM TO COME AND PICK PATIENT UP.
[2022-10-15] MEDS ORDERED: TAMSULOSIN HCL0.4 MG PO (12:23)
--- NOTE | 2022-10-15 14:20 | NUR ---
Discharge instructions given. Patient verbalizes understanding of same. Discharged in stable condition via Wheelchair to [facility] with *Other. All belongings sent with pt.
== END 2022-10-15 14:20 | DRG 178 ==
LOC: ED 12:01 → ED-I 14:10 → ED 14:28 → MS2 14:29
PROVIDERS: Nurse Practitioner; ADMIT Internal Medicine; ATTEND Internal Medicine
PROC: 0T9B70Z Drainage of Bladder with Drainage Device, Via Natural or Artificial Opening (ICD-10-PCS; principal; 2022-10-10)
DX: U07.1 COVID-19 (principal); F03.911 Unspecified dementia, unspecified severity, with agitation; R52 Pain, unspecified; R05.9 Cough, unspecified; R53.1 Weakness; R62.7 Adult failure to thrive; R33.9 Retention of urine, unspecified; I10 Essential (primary) hypertension; E11.9 Type 2 diabetes mellitus without complications; J44.9 Chronic obstructive pulmonary disease, unspecified; I25.119 Atherosclerotic heart disease of native coronary artery with unspecified angina pectoris; I48.91 Unspecified atrial fibrillation; R00.1 Bradycardia, unspecified; E78.5 Hyperlipidemia, unspecified; Z95.1 Presence of aortocoronary bypass graft; Z86.73 Personal history of transient ischemic attack (TIA), and cerebral infarction without residual deficits; Z85.46 Personal history of malignant neoplasm of prostate; Z87.891 Personal history of nicotine dependence; Z79.82 Long term (current) use of aspirin; Z79.02 Long term (current) use of antithrombotics/antiplatelets
CPT/HCPCS: G0378; J1650; J2060; S0166

== ENCOUNTER 2022-12-30 20:54 | Emergency (ER) | payer OTHER, MEDICARE ==
[~2022-12-30] VITALS: Ht 175.3 cm; Wt 77.2 kg
[~2022-12-30 20:54] MED LIST changes: +TAMSULOSIN HCL0.4 MG PO
[2022-12-30 21:26] LABS: BASO% 0.8 % (0-3); EOS% 5.9 % (0-8); IMMATURE GRANULOCYTES 0.2 % (0.0-5.0); LYMPH% 21.9 % (15-41); MONO% 9.9 % (2-13); NEUT# 3.66 thou/uL (1.82-7.42); NEUT% 61.3 % (42-76); RED BLOOD COUNT 3.63 mill/uL (4.70-6.10)
[2022-12-30 21:27] LABS: HEMATOCRIT 36.3 % (39.0-50.0); HEMOGLOBIN 11.6 g/dl (14.0-18.0)
[2022-12-30 21:37] LABS: ALBUMIN 3.8 g/dL (3.2-5.0); ALKALINE PHOSPHATASE 43 u/l (38-126); ANION GAP 11 (6-22 (CALC)); BILIRUBIN, TOTAL 0.4 mg/dL (0.2-1.3); BUN 17 mg/dL (8-23); BUN/CREATININE RATIO 15 (12-20 (CALC)); CARBON DIOXIDE 23 mmol/l (22-30); CHLORIDE 107 mmol/l (95-108); CREATININE 1.1 mg/dL (0.7-1.3); GFR FOR AFR.AMER. > 60 ML/MIN (>=60 (CALC)); GFR OTHER RACES > 60 ML/MIN (>=60 (CALC)); POTASSIUM 4.2 mmol/l (3.5-5.1); SGOT/AST 30 u/l (19-48); SODIUM 138 mmol/l (137-146); TOTAL PROTEIN 6.6 g/dL (6.3-8.2)
[2022-12-31 00:39] VITALS: BP 115/53
== END 2022-12-31 08:20 | disposition home or self-care (01) | DRG 313 ==
LOC: ED 20:54
PROVIDERS: Family Medicine
DX: R07.89 Other chest pain (principal); I10 Essential (primary) hypertension; E11.9 Type 2 diabetes mellitus without complications; F03.90 Unspecified dementia, unspecified severity, without behavioral disturbance, psychotic disturbance, mood disturbance, and anxiety; I25.10 Atherosclerotic heart disease of native coronary artery without angina pectoris; I48.91 Unspecified atrial fibrillation; Z95.1 Presence of aortocoronary bypass graft; Z86.73 Personal history of transient ischemic attack (TIA), and cerebral infarction without residual deficits

== ENCOUNTER 2023-01-06 06:38 | Emergency (ER) | payer OTHER, MEDICARE ==
[2023-01-06] VITALS (12 sets, daily range): BP systolic 116–179; BP diastolic 56–111
[~2023-01-06] VITALS: Ht 175.3 cm; Wt 180.0 kg
[2023-01-06 07:47] LABS: BASO% 0.9 % (0-3); EOS% 6.5 % (0-8); HEMATOCRIT 41.8 % (39.0-50.0); IMMATURE GRANULOCYTES 0.2 % (0.0-5.0); LYMPH% 18.3 % (15-41); MEAN CELL VOLUME 97.2 fL CALC (80.0-100.0); MEAN CORPUSCULAR HGB 31.9 pG CALC (26.0-32.0); MEAN CORPUSCULAR HGB CONC 32.8 g/dL CAL (32.0-36.0); MONO% 9.7 % (2-13); NEUT# 3.66 thou/uL (1.82-7.42); NEUT% 64.4 % (42-76); RED BLOOD COUNT 4.3 mill/uL (4.70-6.10); RED CELL DISTRI WIDTH 12.9 % (11.5-15.5)
[2023-01-06 07:48] LABS: HEMOGLOBIN 13.7 g/dl (14.0-18.0)
[2023-01-06] MEDS ORDERED: FEROSUL325 MG PO (07:49)
[2023-01-06] MEDS ORDERED: ZOLOFT50 MG PO (08:05)
[2023-01-06] MEDS ORDERED: PREDNISOLONE ACET1 % (08:05)
[2023-01-06] MEDS ORDERED: TAMSULOSIN0.4 MG PO (08:06)
[2023-01-06 08:11] LABS: ALBUMIN 4.4 g/dL (3.2-5.0); ALKALINE PHOSPHATASE 58 u/l (38-126); ANION GAP 13 (6-22 (CALC)); BUN 15 mg/dL (8-23); BUN/CREATININE RATIO 15 (12-20 (CALC)); CARBON DIOXIDE 25 mmol/l (22-30); CHLORIDE 107 mmol/l (95-108); GFR FOR AFR.AMER. > 60 ML/MIN (>=60 (CALC)); GFR OTHER RACES > 60 ML/MIN (>=60 (CALC)); POTASSIUM 4.3 mmol/l (3.5-5.1); SGOT/AST 26 u/l (19-48); SODIUM 141 mmol/l (137-146); TOTAL PROTEIN 7.1 g/dL (6.3-8.2)
[2023-01-06 08:12] LABS: BILIRUBIN, TOTAL 0.6 mg/dL (0.2-1.3)
[2023-01-06 08:13] LABS: ACT PARTIAL THROMBO TIME 27.6 SECONDS (20.0-32.5); PROTHROMBIN TIME 9.9 SECONDS (9.0-12.5)
== END 2023-01-06 10:21 | disposition home or self-care (01) | DRG 159 ==
LOC: ED 06:38
PROVIDERS: Emergency Medicine
PROC: 0HQ1XZZ Repair Face Skin, External Approach (ICD-10-PCS; principal; 2023-01-06)
DX: S01.511A Laceration without foreign body of lip, initial encounter (principal); I10 Essential (primary) hypertension; E11.9 Type 2 diabetes mellitus without complications; I25.10 Atherosclerotic heart disease of native coronary artery without angina pectoris; I48.91 Unspecified atrial fibrillation; F03.90 Unspecified dementia, unspecified severity, without behavioral disturbance, psychotic disturbance, mood disturbance, and anxiety; W01.0XXA Fall on same level from slipping, tripping and stumbling without subsequent striking against object, initial encounter; Y92.092 Bedroom in other non-institutional residence as the place of occurrence of the external cause; Z86.73 Personal history of transient ischemic attack (TIA), and cerebral infarction without residual deficits; Z95.1 Presence of aortocoronary bypass graft

== ENCOUNTER 2023-01-09 12:29 | Emergency (ER) | payer OTHER, MEDICARE ==
[~2023-01-09] VITALS: Ht 175.3 cm; Wt 81.6 kg
[2023-01-09] VITALS (19 sets, daily range): BP systolic 118–151; BP diastolic 54–83
[~2023-01-09 12:29] MED LIST changes: +FEROSUL325 MG PO; +PREDNISOLONE ACET1 %; +TAMSULOSIN0.4 MG PO; +ZOLOFT50 MG PO
[2023-01-09 13:43] LABS: BASO% 0.5 % (0-3); HEMATOCRIT 39.1 % (39.0-50.0); HEMOGLOBIN 12.9 g/dl (14.0-18.0); IMMATURE GRANULOCYTES 0.1 % (0.0-5.0); LYMPH% 14.9 % (15-41); MEAN CELL VOLUME 97.5 fL CALC (80.0-100.0); MEAN CORPUSCULAR HGB 32.2 pG CALC (26.0-32.0); MONO% 9.3 % (2-13); NEUT# 5.49 thou/uL (1.82-7.42); NEUT% 71.2 % (42-76); RED BLOOD COUNT 4.01 mill/uL (4.70-6.10); RED CELL DISTRI WIDTH 12.7 % (11.5-15.5)
[2023-01-09 13:49] LABS: ALBUMIN 3.9 g/dL (3.2-5.0); ALKALINE PHOSPHATASE 67 u/l (38-126); ANION GAP 9 (6-22 (CALC)); BILIRUBIN, TOTAL 0.4 mg/dL (0.2-1.3); BUN 12 mg/dL (8-23); BUN/CREATININE RATIO 13 (12-20 (CALC)); CARBON DIOXIDE 24 mmol/l (22-30); CHLORIDE 111 mmol/l (95-108); CREATININE 0.9 mg/dL (0.7-1.3); GFR FOR AFR.AMER. > 60 ML/MIN (>=60 (CALC)); GFR OTHER RACES > 60 ML/MIN (>=60 (CALC)); SGOT/AST 30 u/l (19-48); SODIUM 140 mmol/l (137-146); TOTAL PROTEIN 6.6 g/dL (6.3-8.2)
== END 2023-01-09 18:17 | disposition home or self-care (01) | DRG 556 ==
LOC: ED 12:29
PROVIDERS: Family Medicine
DX: M25.511 Pain in right shoulder (principal); M54.2 Cervicalgia; I10 Essential (primary) hypertension; E11.9 Type 2 diabetes mellitus without complications; I25.10 Atherosclerotic heart disease of native coronary artery without angina pectoris; I48.91 Unspecified atrial fibrillation; F03.90 Unspecified dementia, unspecified severity, without behavioral disturbance, psychotic disturbance, mood disturbance, and anxiety; Z86.73 Personal history of transient ischemic attack (TIA), and cerebral infarction without residual deficits; Z95.1 Presence of aortocoronary bypass graft

== ENCOUNTER 2023-01-28 19:49 | Emergency (ER) | payer OTHER, MEDICARE ==
[~2023-01-28] VITALS: Ht 175.3 cm; Wt 80.0 kg
[2023-01-28 19:58] VITALS: BP 130/67
[2023-01-28 20:05] VITALS: BP 140/57
[2023-01-28 20:15] VITALS: BP 144/58
[2023-01-28 20:35] LABS: BASO% 0.6 % (0-3); EOS% 2.2 % (0-8); HEMATOCRIT 44.4 % (39.0-50.0); HEMOGLOBIN 13.7 g/dl (14.0-18.0); IMMATURE GRANULOCYTES 0.1 % (0.0-5.0); LYMPH% 7.5 % (15-41); MEAN CELL VOLUME 101.4 fL CALC (80.0-100.0); MEAN CORPUSCULAR HGB 31.3 pG CALC (26.0-32.0); MEAN CORPUSCULAR HGB CONC 30.9 g/dL CAL (32.0-36.0); MONO% 9.6 % (2-13); NEUT# 5.35 thou/uL (1.82-7.42); RED BLOOD COUNT 4.38 mill/uL (4.70-6.10); RED CELL DISTRI WIDTH 12.8 % (11.5-15.5)
[2023-01-28 20:45] LABS: ALKALINE PHOSPHATASE 71 u/l (38-126); ANION GAP 12 (6-22 (CALC)); BUN 19 mg/dL (8-23); BUN/CREATININE RATIO 17 (12-20 (CALC)); CARBON DIOXIDE 27 mmol/l (22-30); CHLORIDE 104 mmol/l (95-108); CREATININE 1.1 mg/dL (0.7-1.3); GFR FOR AFR.AMER. > 60 ML/MIN (>=60 (CALC)); GFR OTHER RACES > 60 ML/MIN (>=60 (CALC)); SGOT/AST 21 u/l (19-48); SODIUM 138 mmol/l (137-146); TOTAL PROTEIN 6.8 g/dL (6.3-8.2)
[2023-01-28 20:46] LABS: BILIRUBIN, TOTAL 0.7 mg/dL (0.2-1.3)
[2023-01-28 22:38] LABS: URINE BILIRUBIN - DIPSTICK NEGATIVE (NEGATIVE); URINE BLOOD DIPSTICK TRACE-INTACT (NEGATIVE); URINE COLOR YELLOW; URINE GLUCOSE - DIPSTICK NEGATIVE (NEGATIVE); URINE KETONE NEGATIVE (NEGATIVE); URINE LEUK ESTERASE NEGATIVE (NEGATIVE); URINE PROTEIN - DIPSTICK NEGATIVE (NEG-TRACE); URINE SPECIFIC GRAVITY 1.025; URINE UROBILINOGEN - DIPSTICK 0.2 E.U./dL (0.2)
[2023-01-28 22:39] LABS: URINE NITRITE - DIPSTICK NEGATIVE (Negative)
[2023-01-28] MEDS ORDERED: ACETAMINOPHEN500 M1 PO (23:11)
[2023-01-28] MEDS ORDERED: IBUPROFEN600 MG PO (23:11)
== END 2023-01-28 23:26 | disposition home or self-care (01) | DRG 153 ==
LOC: ED 19:49
PROVIDERS: Family Medicine
DX: J06.9 Acute upper respiratory infection, unspecified (principal); I10 Essential (primary) hypertension; E11.9 Type 2 diabetes mellitus without complications; F03.90 Unspecified dementia, unspecified severity, without behavioral disturbance, psychotic disturbance, mood disturbance, and anxiety; I25.10 Atherosclerotic heart disease of native coronary artery without angina pectoris; I48.91 Unspecified atrial fibrillation; Z95.1 Presence of aortocoronary bypass graft; Z86.73 Personal history of transient ischemic attack (TIA), and cerebral infarction without residual deficits; Z20.822 Contact with and (suspected) exposure to COVID-19

== ENCOUNTER 2023-01-31 11:46 | Emergency (ER) | payer OTHER, MEDICARE ==
[~2023-01-31] VITALS: Ht 175.3 cm; Wt 74.0 kg
[~2023-01-31 11:46] MED LIST changes: +IBUPROFEN600 MG PO
[2023-01-31 12:15] VITALS: BP 117/67
[2023-01-31 13:02] LABS: BASO% 0.8 % (0-3); EOS% 3.6 % (0-8); HEMATOCRIT 42.4 % (39.0-50.0); IMMATURE GRANULOCYTES 0.2 % (0.0-5.0); LYMPH% 20.5 % (15-41); MEAN CELL VOLUME 95.9 fL CALC (80.0-100.0); MEAN CORPUSCULAR HGB 31.7 pG CALC (26.0-32.0); MONO% 9.8 % (2-13); NEUT# 3.27 thou/uL (1.82-7.42); NEUT% 65.1 % (42-76); RED BLOOD COUNT 4.42 mill/uL (4.70-6.10); RED CELL DISTRI WIDTH 12.6 % (11.5-15.5)
[2023-01-31 13:15] LABS: ALBUMIN 4.1 g/dL (3.2-5.0); ALKALINE PHOSPHATASE 74 u/l (38-126); ANION GAP 14 (6-22 (CALC)); BILIRUBIN, TOTAL 0.9 mg/dL (0.2-1.3); BUN 20 mg/dL (8-23); BUN/CREATININE RATIO 18 (12-20 (CALC)); CARBON DIOXIDE 23 mmol/l (22-30); CHLORIDE 107 mmol/l (95-108); CREATININE 1.1 mg/dL (0.7-1.3); GFR FOR AFR.AMER. > 60 ML/MIN (>=60 (CALC)); GFR OTHER RACES > 60 ML/MIN (>=60 (CALC)); POTASSIUM 3.9 mmol/l (3.5-5.1); SGOT/AST 29 u/l (19-48); SODIUM 140 mmol/l (137-146); TOTAL PROTEIN 7.3 g/dL (6.3-8.2)
[2023-01-31 15:38] VITALS: BP 119/60
[2023-01-31] MEDS ORDERED: PREDNISONE20 MG PO (15:59)
[2023-01-31] MEDS ORDERED: ZITHROMAX250 MG PO (15:59)
[2023-01-31] MEDS ORDERED: IPRATROPIU0.5 MG/3 M IN (15:59)
[2023-01-31] MEDS ORDERED: PULMICORT0.5 MG IN (15:59)
== END 2023-01-31 16:11 | disposition home or self-care (01) | DRG 203 ==
LOC: ED 11:46
PROVIDERS: Family Medicine
DX: J40 Bronchitis, not specified as acute or chronic (principal); F03.90 Unspecified dementia, unspecified severity, without behavioral disturbance, psychotic disturbance, mood disturbance, and anxiety; I10 Essential (primary) hypertension; E11.9 Type 2 diabetes mellitus without complications; I25.10 Atherosclerotic heart disease of native coronary artery without angina pectoris; I48.91 Unspecified atrial fibrillation; Z95.1 Presence of aortocoronary bypass graft; Z86.73 Personal history of transient ischemic attack (TIA), and cerebral infarction without residual deficits

== ENCOUNTER 2023-08-14 07:04 | Observation (INO) | payer OTHER, MEDICARE ==
[~2023-08-14] VITALS: Ht 175.3 cm; Wt 79.6 kg
[2023-08-14] VITALS (18 sets, daily range): BP systolic 109–166; BP diastolic 52–138
[~2023-08-14 07:04] MED LIST changes: +IPRATROPIU0.5 MG/3 M IN; +PREDNISONE20 MG PO; +PULMICORT0.5 MG IN
[2023-08-14 08:25] LABS: BASO% 0.6 % (0-3); EOS% 2.9 % (0-8); HEMATOCRIT 42.1 % (39.0-50.0); HEMOGLOBIN 14.2 g/dl (14.0-18.0); IMMATURE GRANULOCYTES 0.5 % (0.0-5.0); LYMPH% 11.8 % (15-41); MEAN CELL VOLUME 97.2 fL CALC (80.0-100.0); MEAN CORPUSCULAR HGB 32.8 pG CALC (26.0-32.0); MEAN CORPUSCULAR HGB CONC 33.7 g/dL CAL (32.0-36.0); MONO% 6.3 % (2-13); NEUT# 6.09 thou/uL (1.82-7.42); NEUT% 77.9 % (42-76); RED BLOOD COUNT 4.33 mill/uL (4.70-6.10); RED CELL DISTRI WIDTH 12.8 % (11.5-15.5); URINE BILIRUBIN - DIPSTICK Negative (NEGATIVE); URINE BLOOD DIPSTICK Negative (NEGATIVE); URINE GLUCOSE - DIPSTICK Negative (NEGATIVE); URINE KETONE Negative (NEGATIVE); URINE LEUK ESTERASE Negative (NEGATIVE); URINE NITRITE - DIPSTICK Negative (Negative); URINE PROTEIN - DIPSTICK Negative (NEG-TRACE); URINE SPECIFIC GRAVITY 1.015; URINE UROBILINOGEN - DIPSTICK 0.2 E.U./dL (0.2)
[2023-08-14 08:26] LABS: URINE COLOR Yellow
[2023-08-14 08:42] LABS: ALBUMIN 4.1 g/dL (3.2-5.0); ALKALINE PHOSPHATASE 67 u/l (38-126); ANION GAP 10 (6-22 (CALC)); BILIRUBIN, TOTAL 0.5 mg/dL (0.2-1.3); BUN 16 mg/dL (8-23); BUN/CREATININE RATIO 17 (12-20 (CALC)); CARBON DIOXIDE 27 mmol/l (22-30); CHLORIDE 110 mmol/l (95-108); CREATININE 0.9 mg/dL (0.7-1.3); ETHYL ALCOHOL 0 mg/dl (0-30); GFR FOR AFR.AMER. > 60 ML/MIN (>=60 (CALC)); GFR OTHER RACES > 60 ML/MIN (>=60 (CALC)); POTASSIUM 3.9 mmol/l (3.5-5.1); SGOT/AST 30 u/l (19-48); SODIUM 142 mmol/l (137-146); TOTAL PROTEIN 6.9 g/dL (6.3-8.2)
[2023-08-15 02:59] VITALS: BP 146/68
[2023-08-15 05:25] LABS: BASO% 0.9 % (0-3); EOS% 5.3 % (0-8); HEMATOCRIT 45.1 % (39.0-50.0); HEMOGLOBIN 15.2 g/dl (14.0-18.0); IMMATURE GRANULOCYTES 0.7 % (0.0-5.0); LYMPH% 16.6 % (15-41); MEAN CORPUSCULAR HGB 32.7 pG CALC (26.0-32.0); MEAN CORPUSCULAR HGB CONC 33.7 g/dL CAL (32.0-36.0); MONO% 7.8 % (2-13); NEUT# 4.77 thou/uL (1.82-7.42); NEUT% 68.7 % (42-76); RED BLOOD COUNT 4.65 mill/uL (4.70-6.10); RED CELL DISTRI WIDTH 12.7 % (11.5-15.5)
[2023-08-15 05:39] LABS: ALBUMIN 3.9 g/dL (3.2-5.0); ALKALINE PHOSPHATASE 71 u/l (38-126); ANION GAP 11 (6-22 (CALC)); BILIRUBIN, TOTAL 0.7 mg/dL (0.2-1.3); BUN 14 mg/dL (8-23); BUN/CREATININE RATIO 15 (12-20 (CALC)); CARBON DIOXIDE 25 mmol/l (22-30); CHLORIDE 110 mmol/l (95-108); CHOLESTEROL HDL RATIO 4.7 (<4.4 (CALC)); CREATININE 0.9 mg/dL (0.7-1.3); GFR FOR AFR.AMER. > 60 ML/MIN (>=60 (CALC)); GFR OTHER RACES > 60 ML/MIN (>=60 (CALC)); HDL CHOLESTEROL 42 mg/dL (39.0-59.0); MAGNESIUM 2.3 mg/dL (1.6-2.3); SGOT/AST 28 u/l (19-48); SODIUM 141 mmol/l (137-146); TOTAL PROTEIN 6.4 g/dL (6.3-8.2); TOTAL TRIGLYCERIDES 187 mg/dl (0-149); VLDL CHOLESTROL 37 mg/dl (0-38 (CALC))
[2023-08-15 05:44] LABS: CALCULATED LDLCHOLESTEROL 117 mg/dL (62-129 (CALC)); TOTAL CHOLESTEROL 196 mg/dl (0-199)
[2023-08-15 07:19] VITALS: BP 153/70
[2023-08-15 11:40] VITALS: BP 136/65
[2023-08-15 11:45] VITALS: BP 121/42
[2023-08-15 11:50] VITALS: BP 108/48
== END 2023-08-15 15:20 | DRG 312 ==
LOC: ED 07:04 → ED-I 10:00 → ED 10:18 → MS2 10:19
PROVIDERS: Emergency Medicine; ADMIT Student in an Organized Health Care Education/Training Program; ATTEND Student in an Organized Health Care Education/Training Program
DX: R55 Syncope and collapse (principal); I95.1 Orthostatic hypotension; I10 Essential (primary) hypertension; E11.9 Type 2 diabetes mellitus without complications; I48.91 Unspecified atrial fibrillation; J44.9 Chronic obstructive pulmonary disease, unspecified; I25.119 Atherosclerotic heart disease of native coronary artery with unspecified angina pectoris; E78.5 Hyperlipidemia, unspecified; F03.90 Unspecified dementia, unspecified severity, without behavioral disturbance, psychotic disturbance, mood disturbance, and anxiety; R00.1 Bradycardia, unspecified; Z86.73 Personal history of transient ischemic attack (TIA), and cerebral infarction without residual deficits; Z95.1 Presence of aortocoronary bypass graft; Z85.46 Personal history of malignant neoplasm of prostate; Z87.891 Personal history of nicotine dependence

== ENCOUNTER 2023-09-02 13:31 | Emergency (ER) | payer OTHER, MEDICARE ==
[2023-09-02] VITALS (16 sets, daily range): BP systolic 95–154; BP diastolic 41–112
[~2023-09-02] VITALS: Ht 175.3 cm; Wt 81.6 kg
[~2023-09-02 13:31] MED LIST changes: -PREDNISOLONE ACET1 %; +PREDNISOLONE ACET1 % OS
[2023-09-02 13:49] LABS: BASO% 0.6 % (0-3); EOS% 4.1 % (0-8); HEMATOCRIT 42.6 % (39.0-50.0); HEMOGLOBIN 14.4 g/dl (14.0-18.0); IMMATURE GRANULOCYTES 0.2 % (0.0-5.0); MEAN CELL VOLUME 95.5 fL CALC (80.0-100.0); MEAN CORPUSCULAR HGB 32.3 pG CALC (26.0-32.0); MEAN CORPUSCULAR HGB CONC 33.8 g/dL CAL (32.0-36.0); MONO% 11.6 % (2-13); NEUT# 4.18 thou/uL (1.82-7.42); NEUT% 65.5 % (42-76); RED BLOOD COUNT 4.46 mill/uL (4.70-6.10); RED CELL DISTRI WIDTH 12.9 % (11.5-15.5)
[2023-09-02 14:11] LABS: ALBUMIN 4.1 g/dL (3.2-5.0); ANION GAP 11 (6-22 (CALC)); BILIRUBIN, TOTAL 0.6 mg/dL (0.2-1.3); BUN 19 mg/dL (8-23); BUN/CREATININE RATIO 15 (12-20 (CALC)); CARBON DIOXIDE 26 mmol/l (22-30); CHLORIDE 106 mmol/l (95-108); CREATININE 1.3 mg/dL (0.7-1.3); GFR FOR AFR.AMER. > 60 ML/MIN (>=60 (CALC)); GFR OTHER RACES 53 ML/MIN (>=60 (CALC)); SGOT/AST 33 u/l (19-48); SODIUM 140 mmol/l (137-146)
[2023-09-02] MEDS ORDERED: D325 MCG PO (14:16)
[2023-09-02 14:25] LABS: ALKALINE PHOSPHATASE 126 u/l (38-126)
[2023-09-02 15:55] LABS: URINE BLOOD DIPSTICK Trace-intact (NEGATIVE); URINE GLUCOSE - DIPSTICK Negative (NEGATIVE); URINE KETONE 15 mg/dL (NEGATIVE); URINE LEUK ESTERASE Negative (NEGATIVE); URINE NITRITE - DIPSTICK Negative (Negative); URINE PROTEIN - DIPSTICK 30 mg/dL (NEG-TRACE); URINE SPECIFIC GRAVITY 1.025
[2023-09-02 15:56] LABS: URINE COLOR Yellow
[2023-09-02 15:58] LABS: URINE RBC 0-2 RBC/hpf (0-5); URINE WBC 0-2 WBC/hpf (0-5)
== END 2023-09-02 19:15 | disposition home or self-care (01) | DRG 948 ==
LOC: ED 13:31
PROVIDERS: Family Medicine
DX: R41.82 Altered mental status, unspecified (principal); F03.90 Unspecified dementia, unspecified severity, without behavioral disturbance, psychotic disturbance, mood disturbance, and anxiety; E11.9 Type 2 diabetes mellitus without complications; I10 Essential (primary) hypertension; I25.10 Atherosclerotic heart disease of native coronary artery without angina pectoris; I48.91 Unspecified atrial fibrillation; Z86.73 Personal history of transient ischemic attack (TIA), and cerebral infarction without residual deficits; Z95.1 Presence of aortocoronary bypass graft; Z97.2 Presence of dental prosthetic device (complete) (partial); Z20.822 Contact with and (suspected) exposure to COVID-19

== ENCOUNTER 2023-09-12 12:23 | Emergency (ER) | payer OTHER, MEDICARE ==
[~2023-09-12] VITALS: Ht 175.3 cm; Wt 90.0 kg
[2023-09-12] VITALS (10 sets, daily range): BP systolic 77–144; BP diastolic 40–124
[~2023-09-12 12:23] MED LIST changes: +D325 MCG PO
[2023-09-12 15:21] LABS: URINE BILIRUBIN - DIPSTICK Negative (NEGATIVE); URINE BLOOD DIPSTICK Negative (NEGATIVE); URINE COLOR Yellow; URINE GLUCOSE - DIPSTICK Negative (NEGATIVE); URINE KETONE Negative (NEGATIVE); URINE LEUK ESTERASE Negative (NEGATIVE); URINE NITRITE - DIPSTICK Negative (Negative); URINE PH 8.5 (4.5-8.0); URINE PROTEIN - DIPSTICK Negative (NEG-TRACE); URINE UROBILINOGEN - DIPSTICK 0.2 E.U./dL (0.2)
[2023-09-12] MEDS ORDERED: DEXAMETHASONE SOD. PHOSPHATE 10 MG/ML VIAL IM ONE (15:30)
[2023-09-12] MEDS ORDERED: KETOROLAC TROMETHAMINE 30 MG/ML SDV IM ONE (15:30)
[2023-09-12] MEDS ORDERED: diazePAM 10 MG/2 ML VIAL IM ONE (15:30)
[2023-09-12] MEDS ORDERED: ORPHENADRINE100 MG PO (15:59)
[2023-09-12] MEDS ORDERED: MEDDOSEPAK PO (15:59)
== END 2023-09-12 17:50 | disposition home or self-care (01) | DRG 563 ==
LOC: ED 12:23
PROVIDERS: Emergency Medicine
DX: S39.012A Strain of muscle, fascia and tendon of lower back, initial encounter (principal); I10 Essential (primary) hypertension; E11.9 Type 2 diabetes mellitus without complications; I25.10 Atherosclerotic heart disease of native coronary artery without angina pectoris; I48.91 Unspecified atrial fibrillation; F03.90 Unspecified dementia, unspecified severity, without behavioral disturbance, psychotic disturbance, mood disturbance, and anxiety; Z86.73 Personal history of transient ischemic attack (TIA), and cerebral infarction without residual deficits; Z95.1 Presence of aortocoronary bypass graft; X58.XXXA Exposure to other specified factors, initial encounter

== ENCOUNTER 2023-09-23 05:55 | Emergency (ER) | payer OTHER, MEDICARE ==
[2023-09-23] VITALS (13 sets, daily range): BP systolic 79–157; BP diastolic 42–132
[~2023-09-23 05:55] MED LIST changes: +MEDDOSEPAK PO; +ORPHENADRINE100 MG PO
[2023-09-23 07:15] LABS: BASO% 0.3 % (0-3); EOS% 2.2 % (0-8); HEMATOCRIT 41.9 % (39.0-50.0); HEMOGLOBIN 13.8 g/dl (14.0-18.0); IMMATURE GRANULOCYTES 0.4 % (0.0-5.0); LYMPH% 9.3 % (15-41); MEAN CELL VOLUME 98.8 fL CALC (80.0-100.0); MEAN CORPUSCULAR HGB 32.5 pG CALC (26.0-32.0); MEAN CORPUSCULAR HGB CONC 32.9 g/dL CAL (32.0-36.0); MONO% 7.8 % (2-13); NEUT# 5.89 thou/uL (1.82-7.42); RED BLOOD COUNT 4.24 mill/uL (4.70-6.10)
[2023-09-23 07:48] LABS: URINE BILIRUBIN - DIPSTICK Negative (NEGATIVE); URINE BLOOD DIPSTICK Negative (NEGATIVE); URINE GLUCOSE - DIPSTICK Negative (NEGATIVE); URINE KETONE Negative (NEGATIVE); URINE LEUK ESTERASE Negative (NEGATIVE); URINE NITRITE - DIPSTICK Negative (Negative); URINE PROTEIN - DIPSTICK Negative (NEG-TRACE); URINE SPECIFIC GRAVITY 1.015; URINE UROBILINOGEN - DIPSTICK 0.2 E.U./dL (0.2)
[2023-09-23 07:48] LABS: ALBUMIN 3.9 g/dL (3.2-5.0); ALKALINE PHOSPHATASE 86 u/l (38-126); ANION GAP 8 (6-22 (CALC)); BILIRUBIN, TOTAL 0.7 mg/dL (0.2-1.3); BUN 16 mg/dL (8-23); BUN/CREATININE RATIO 14 (12-20 (CALC)); CARBON DIOXIDE 29 mmol/l (22-30); CHLORIDE 107 mmol/l (95-108); CPK 73 u/l (55-170); CREATININE 1.2 mg/dL (0.7-1.3); GFR FOR AFR.AMER. > 60 ML/MIN (>=60 (CALC)); GFR OTHER RACES 58 ML/MIN (>=60 (CALC)); MAGNESIUM 2.4 mg/dL (1.6-2.3); SGOT/AST 26 u/l (19-48); SODIUM 140 mmol/l (137-146); TOTAL PROTEIN 6.6 g/dL (6.3-8.2)
[2023-09-23 07:49] LABS: URINE COLOR Yellow
== END 2023-09-23 09:26 | DRG 639 ==
LOC: ED 05:55
PROVIDERS: Internal Medicine
DX: E11.649 Type 2 diabetes mellitus with hypoglycemia without coma (principal); F03.90 Unspecified dementia, unspecified severity, without behavioral disturbance, psychotic disturbance, mood disturbance, and anxiety; I10 Essential (primary) hypertension; I25.10 Atherosclerotic heart disease of native coronary artery without angina pectoris; I48.91 Unspecified atrial fibrillation; S40.812D Abrasion of left upper arm, subsequent encounter; S40.811D Abrasion of right upper arm, subsequent encounter; S40.022D Contusion of left upper arm, subsequent encounter; S40.021D Contusion of right upper arm, subsequent encounter; X58.XXXD Exposure to other specified factors, subsequent encounter; Z95.1 Presence of aortocoronary bypass graft; Z86.73 Personal history of transient ischemic attack (TIA), and cerebral infarction without residual deficits

== ENCOUNTER 2023-09-25 18:24 | Emergency (ER) | payer OTHER, MEDICARE ==
[~2023-09-25] VITALS: Ht 175.3 cm; Wt 81.6 kg
[2023-09-25] VITALS (14 sets, daily range): BP systolic 82–156; BP diastolic 52–97
[2023-09-25] MEDS ORDERED: SODIUM CHLORIDE 0.9% 1,000 ML IV STA (18:53)
[2023-09-25] MEDS ORDERED: ONDANSETRON HCl 4 MG/2 ML SDV IV STA (18:53)
[2023-09-25 19:22] LABS: BASO% 0.6 % (0-3); EOS% 1.7 % (0-8); HEMATOCRIT 38.2 % (39.0-50.0); HEMOGLOBIN 12.8 g/dl (14.0-18.0); IMMATURE GRANULOCYTES 0.2 % (0.0-5.0); LYMPH% 9.7 % (15-41); MEAN CELL VOLUME 96.5 fL CALC (80.0-100.0); MEAN CORPUSCULAR HGB 32.3 pG CALC (26.0-32.0); MEAN CORPUSCULAR HGB CONC 33.5 g/dL CAL (32.0-36.0); MONO% 7.8 % (2-13); NEUT# 5.11 thou/uL (1.82-7.42); RED BLOOD COUNT 3.96 mill/uL (4.70-6.10); RED CELL DISTRI WIDTH 13.1 % (11.5-15.5)
[2023-09-25 19:38] LABS: ALBUMIN 3.9 g/dL (3.2-5.0); ALKALINE PHOSPHATASE 82 u/l (38-126); ANION GAP 11 (6-22 (CALC)); BILIRUBIN, TOTAL 0.6 mg/dL (0.2-1.3); BUN 17 mg/dL (8-23); BUN/CREATININE RATIO 16 (12-20 (CALC)); CARBON DIOXIDE 24 mmol/l (22-30); CHLORIDE 106 mmol/l (95-108); CREATININE 1.1 mg/dL (0.7-1.3); GFR FOR AFR.AMER. > 60 ML/MIN (>=60 (CALC)); GFR OTHER RACES > 60 ML/MIN (>=60 (CALC)); LIPASE 74 u/l (23-300); POTASSIUM 3.8 mmol/l (3.5-5.1); SGOT/AST 26 u/l (19-48); SODIUM 137 mmol/l (137-146); TOTAL PROTEIN 6.4 g/dL (6.3-8.2)
[2023-09-26] VITALS (8 sets, daily range): BP systolic 109–148; BP diastolic 59–113
[2023-09-26] MEDS ORDERED: ZOFRAN4 MG/TAB PO (00:47)
[2023-09-26] MEDS ORDERED: ONDANSETRON HCl 4 MG/2 ML SDV IV ONE (02:40)
[2023-09-26 04:48] LABS: URINE BILIRUBIN - DIPSTICK Negative (NEGATIVE); URINE BLOOD DIPSTICK Negative (NEGATIVE); URINE COLOR Yellow; URINE GLUCOSE - DIPSTICK Negative (NEGATIVE); URINE KETONE Trace mg/dL (NEGATIVE); URINE LEUK ESTERASE Negative (NEGATIVE); URINE NITRITE - DIPSTICK Negative (Negative); URINE PH 8.5 (4.5-8.0); URINE PROTEIN - DIPSTICK Trace mg/dL (NEG-TRACE); URINE SPECIFIC GRAVITY 1.015
== END 2023-09-26 07:22 | disposition home or self-care (01) | DRG 392 ==
LOC: ED 18:24
PROVIDERS: Nurse Practitioner
DX: R11.2 Nausea with vomiting, unspecified (principal); I10 Essential (primary) hypertension; E11.9 Type 2 diabetes mellitus without complications; I25.10 Atherosclerotic heart disease of native coronary artery without angina pectoris; I48.91 Unspecified atrial fibrillation; F03.90 Unspecified dementia, unspecified severity, without behavioral disturbance, psychotic disturbance, mood disturbance, and anxiety; Z95.1 Presence of aortocoronary bypass graft; Z86.73 Personal history of transient ischemic attack (TIA), and cerebral infarction without residual deficits
CPT/HCPCS: Q9967

== ENCOUNTER 2023-10-02 21:15 | Observation (INO) | payer OTHER, MEDICARE ==
[~2023-10-02] VITALS: Ht 175.3 cm; Wt 74.1 kg
[~2023-10-02 21:15] MED LIST changes: +ZOFRAN4 MG/TAB PO
[2023-10-02 22:02] LABS: BASO% 0.7 % (0-3); EOS% 2.4 % (0-8); HEMATOCRIT 43.1 % (39.0-50.0); HEMOGLOBIN 14.5 g/dl (14.0-18.0); IMMATURE GRANULOCYTES 0.1 % (0.0-5.0); LYMPH% 12.9 % (15-41); MEAN CELL VOLUME 94.3 fL CALC (80.0-100.0); MEAN CORPUSCULAR HGB 31.7 pG CALC (26.0-32.0); MEAN CORPUSCULAR HGB CONC 33.6 g/dL CAL (32.0-36.0); MONO% 9.8 % (2-13); NEUT# 5.29 thou/uL (1.82-7.42); NEUT% 74.1 % (42-76); RED BLOOD COUNT 4.57 mill/uL (4.70-6.10); RED CELL DISTRI WIDTH 12.9 % (11.5-15.5)
[2023-10-02 22:32] LABS: ALBUMIN 4.3 g/dL (3.2-5.0); ALKALINE PHOSPHATASE 89 u/l (38-126); ANION GAP 12 (6-22 (CALC)); BILIRUBIN, TOTAL 0.7 mg/dL (0.2-1.3); BUN 19 mg/dL (8-23); BUN/CREATININE RATIO 16 (12-20 (CALC)); CARBON DIOXIDE 23 mmol/l (22-30); CHLORIDE 107 mmol/l (95-108); CREATININE 1.2 mg/dL (0.7-1.3); GFR FOR AFR.AMER. > 60 ML/MIN (>=60 (CALC)); GFR OTHER RACES 58 ML/MIN (>=60 (CALC)); POTASSIUM 3.8 mmol/l (3.5-5.1); SGOT/AST 32 u/l (19-48); SODIUM 137 mmol/l (137-146); TOTAL PROTEIN 7.2 g/dL (6.3-8.2)
[2023-10-03] VITALS (9 sets, daily range): BP systolic 121–158; BP diastolic 48–68
[2023-10-03 01:32] LABS: URINE BLOOD DIPSTICK Negative (NEGATIVE); URINE GLUCOSE - DIPSTICK Negative (NEGATIVE); URINE KETONE 40 mg/dL (NEGATIVE); URINE LEUK ESTERASE Negative (NEGATIVE); URINE NITRITE - DIPSTICK Negative (Negative); URINE PROTEIN - DIPSTICK Negative (NEG-TRACE)
[2023-10-03 01:34] LABS: URINE COLOR Yellow
[2023-10-03] MEDS ORDERED: ALUM & MAG HYDROX-SIMETHICONE 30 ML PO PRN (01:55)
[2023-10-03] MEDS ORDERED: FAMOTIDINE 10MG/ML 2ML SDV IV PRN (01:55)
[2023-10-03] MEDS ORDERED: ENOXAPARIN SODIUM 40 MG/0.4 ML SYR SC SCH ×2 (01:55→21:00)
[2023-10-03] MEDS ORDERED: IBUPROFEN 800 MG/TAB PO PRN (01:55)
[2023-10-03] MEDS ORDERED: ONDANSETRON 4 MG/TAB ODT PO PRN (01:55)
[2023-10-03] MEDS ORDERED: MAGNESIUM HYDROXIDE 30 ML UDC PO PRN ×2 (01:55→12:20)
[2023-10-03] MEDS ORDERED: ONDANSETRON HCl 4 MG/2 ML SDV IV PRN (01:55)
[2023-10-03] MEDS ORDERED: CLARIFY DOSE PO PRN (03:05)
[2023-10-03] MEDS ORDERED: ACETAMINOPHEN 325 MG/TAB PO PRN (12:20)
[2023-10-04 03:34] VITALS: BP 146/54
[2023-10-04 06:39] VITALS: BP 122/41
[2023-10-04 07:37] LABS: BASO% 0.9 % (0-3); EOS% 3.5 % (0-8); HEMATOCRIT 43.3 % (39.0-50.0); HEMOGLOBIN 14.4 g/dl (14.0-18.0); IMMATURE GRANULOCYTES 0.2 % (0.0-5.0); LYMPH% 19.1 % (15-41); MEAN CELL VOLUME 96.7 fL CALC (80.0-100.0); MEAN CORPUSCULAR HGB 32.1 pG CALC (26.0-32.0); MEAN CORPUSCULAR HGB CONC 33.3 g/dL CAL (32.0-36.0); MONO% 9.6 % (2-13); NEUT# 3.77 thou/uL (1.82-7.42); NEUT% 66.7 % (42-76); RED BLOOD COUNT 4.48 mill/uL (4.70-6.10); RED CELL DISTRI WIDTH 13.1 % (11.5-15.5)
[2023-10-04 07:54] LABS: BUN 17 mg/dL (8-23); BUN/CREATININE RATIO 15 (12-20 (CALC)); CHLORIDE 110 mmol/l (95-108); CREATININE 1.1 mg/dL (0.7-1.3); GFR FOR AFR.AMER. > 60 ML/MIN (>=60 (CALC)); GFR OTHER RACES > 60 ML/MIN (>=60 (CALC)); MAGNESIUM 2.2 mg/dL (1.6-2.3); SODIUM 142 mmol/l (137-146)
[2023-10-04 08:10] LABS: ANION GAP 9 (6-22 (CALC)); CARBON DIOXIDE 28 mmol/l (22-30); POTASSIUM 4.6 mmol/l (3.5-5.1)
[2023-10-04 10:26] VITALS: BP 102/84
[2023-10-04 15:20] VITALS: BP 131/104
[2023-10-04] MEDS ORDERED: CLOPIDOGREL BISULFATE 75 MG/TAB TAB PO SCH (15:30)
[2023-10-04 18:44] VITALS: BP 130/52
[2023-10-04] MEDS ORDERED: ATORVASTATIN CALCIUM 10 MG/TAB PO SCH (21:00)
[2023-10-04] MEDS ORDERED: FAMOTIDINE 20 MG/TAB PO SCH (21:00)
[2023-10-04 23:50] VITALS: BP 129/60
[2023-10-05 04:59] VITALS: BP 126/58
[2023-10-05 05:50] LABS: BASO% 0.8 % (0-3); EOS% 4.7 % (0-8); HEMATOCRIT 41.9 % (39.0-50.0); IMMATURE GRANULOCYTES 0.2 % (0.0-5.0); LYMPH% 22.8 % (15-41); MEAN CORPUSCULAR HGB 32.4 pG CALC (26.0-32.0); MEAN CORPUSCULAR HGB CONC 33.4 g/dL CAL (32.0-36.0); MONO% 9.5 % (2-13); NEUT# 3.7 thou/uL (1.82-7.42); RED BLOOD COUNT 4.32 mill/uL (4.70-6.10); RED CELL DISTRI WIDTH 13.1 % (11.5-15.5)
[2023-10-05 05:52] LABS: ANION GAP 10 (6-22 (CALC)); BUN 15 mg/dL (8-23); BUN/CREATININE RATIO 14 (12-20 (CALC)); CARBON DIOXIDE 27 mmol/l (22-30); CHLORIDE 108 mmol/l (95-108); CREATININE 1.1 mg/dL (0.7-1.3); GFR FOR AFR.AMER. > 60 ML/MIN (>=60 (CALC)); GFR OTHER RACES > 60 ML/MIN (>=60 (CALC)); SODIUM 140 mmol/l (137-146)
[2023-10-05 06:45] VITALS: BP 133/59
[2023-10-05] MEDS ORDERED: VITAMIN D325 MCG PO (12:22)
[2023-10-05] MEDS ORDERED: TAMSULOSIN0.4 MG PO (12:22)
== END 2023-10-05 14:10 | DRG 948 ==
LOC: ED 21:15 → MS2 10-03 01:54
PROVIDERS: Family Medicine; ADMIT Student in an Organized Health Care Education/Training Program; ATTEND Student in an Organized Health Care Education/Training Program
DX: R41.0 Disorientation, unspecified (principal); R11.2 Nausea with vomiting, unspecified; F03.90 Unspecified dementia, unspecified severity, without behavioral disturbance, psychotic disturbance, mood disturbance, and anxiety; E11.9 Type 2 diabetes mellitus without complications; I10 Essential (primary) hypertension; I25.10 Atherosclerotic heart disease of native coronary artery without angina pectoris; I48.91 Unspecified atrial fibrillation; J44.9 Chronic obstructive pulmonary disease, unspecified; Z95.1 Presence of aortocoronary bypass graft; Z86.73 Personal history of transient ischemic attack (TIA), and cerebral infarction without residual deficits; Z85.46 Personal history of malignant neoplasm of prostate; Z87.891 Personal history of nicotine dependence; Z20.822 Contact with and (suspected) exposure to COVID-19
CPT/HCPCS: A9579; J1650